=== PATIENT | male | born 1965 | race Two or more races ===

== ENCOUNTER 2023-01-31 11:41 | Outpatient (REF) | payer MEDICAID, SELFPAY ==
--- NOTE | ~2023-01-31 | XR_ITS ---
EXAMINATION: XR FOOT, RIGHT CLINICAL INFORMATION: Chronic heel pain right foot, bilateral lower back pain. Patient states foot surgery 30 years ago and has had pain ever since that COMPARISON: 08/19/2018 TECHNIQUE: AP, lateral, and oblique views of the right foot. FINDINGS: Redemonstration of 2 screws traversing the previously demonstrated old medial malleolus fracture. Small plantar and dorsal calcaneal spurs redemonstrated. Mild degenerative changes with hypertrophic change in the first metatarsophalangeal joint. XR/XR foot RT min 3V IMPRESSION: 1. Redemonstration of 2 screws traversing the previously demonstrated old medial malleolus fracture. 2. Small plantar and dorsal calcaneal spurs redemonstrated. 3. Mild degenerative changes in the first metatarsophalangeal joint. Recommend follow-up imaging in 10-14 days if fracture is suspected. Additional imaging with CT scan or MRI should be considered for better visualization as these modalities are much more sensitive for detection of fracture or other underlying pathology.
--- NOTE | ~2023-01-31 | XR_ITS ---
EXAMINATION: XR LUMBOSACRAL SPINE CLINICAL INFORMATION: 57-year-old with bilateral low back pain without sciatica. History of foot surgery with chronic right heel pain. COMPARISON: None available. TECHNIQUE: Three views of the lumbosacral spine. FINDINGS: The lumbosacral spine is anatomically aligned. No acute fractures are seen. Vertebral body heights are well maintained. There is multilevel paravertebral and anterior marginal spondylosis throughout the lumbar spine. Mild degrees of disc volume loss are suspected at L2-L3, L3-L4, L4-L5, and L5-S1. Posterior elements appear grossly intact, with mild degrees of facet arthropathy at L3-L4 and moderate degrees of facet arthropathy at L4-L5. The visualized SI joints and sacrum appear grossly intact within the limitations of the exam. Incidental note is made of anterior marginal spondylosis at T8-T9. XR/XR lumbar spine 2-3V IMPRESSION: 1. Multilevel lumbar spondylosis and mild disc volume loss at L2-L3 through L5-S1. 2. Facet arthropathy at L3-L4 and L4-L5.
[2023-01-31 13:51] LABS: Alanine Aminotransferase 26 U/L (0-40); Albumin Level 4.5 g/dL (3.5-5.0); Alkaline Phosphatase 71 U/L (39-117); Anion Gap 12 (12-20); Aspartate Amino Transferase 21 U/L (5-37); Bilirubin Direct 0.2 mg/dL (0.0-0.5); Bilirubin Total 0.8 mg/dL (0.0-1.0); Blood Urea Nitrogen 12 mg/dL (9-16); Calcium 9.5 mg/dL (8.4-10.2); Carbon Dioxide 28 mmol/L (22-29); Chloride 105 mmol/L (96-108); Cholesterol 227 mg/dL (<200); Estimated Glomerular Filt Rate > 60; Glucose Random 94 mg/dL (60-115); HDL Cholesterol 50 mg/dL (>40); LDL Cholesterol Calculated 154 mg/dL (<100); Potassium 3.8 mmol/L (3.3-5.1); Sodium 141 mmol/L (135-145); Total Protein 8.1 g/dL (6.5-8.0); Triglycerides 115 mg/dL (<150)
[2023-01-31 14:08] LABS: Free T4 (Free Thyroxine) 0.92 ng/dL (0.71-1.85); Thyroid Stimulating Hormone 0.59 uIU/mL (0.32-4.0); Vitamin D 25-OH Total 50.8 ng/mL (>30)
[2023-02-01 04:09] LABS: Syphilis Screen Nonreactive (Nonreactive)
[2023-02-01 04:33] LABS: HBS Num1 0.26 mIU/mL (0-7.99); HBsAGNum1 0.35 S/CO (0.00-0.99); HIV AB/AG Nonreactive (Nonreactive); HIV Num 1 0.06 S/CO (0.00-0.99); Hepatitis B Surface Antigen Negative (Negative); ~HepC Num1 0.08 S/CO (0.00-0.79); ~Hepatitis B Surface Antibody NONREACTIVE (Nonreactive); ~Hepatitis C Antibody Nonreactive (Nonreactive)
== END 2023-01-31 11:42 | disposition home or self-care (01) ==
LOC: HO.HHCL 11:41
PROVIDERS: Visit Provider Family Medicine
DX: I10 Essential (primary) hypertension (principal); R39.12 Poor urinary stream
CPT/HCPCS: 0353U; 72100; 73630; 80048; 80061; 80076; 82043; 82306; 82570; 83036; 84153; 84439; 84443; 85025; 86706; 86780; 86803; 87086; 87340; 87389

== ENCOUNTER 2023-02-11 14:48 | Emergency (ER) | payer MEDICAID, SELFPAY ==
[2023-02-11 14:59] VITALS: BP 170/84; PULSE 77; RESP 20; TEMP 36.6; O2SAT 100; BMI 36.9
--- NOTE | 2023-02-11 15:02 | ED_ITS ---
HPI - Dental/Oral General Chief complaint: Dental/Oral Stated complaint: Dental pain/Ear pain Time Seen by Provider: 02/11/23 15:02 Source: patient and family Mode of arrival: ambulatory Limitations: no limitations History of Present Illness HPI Narrative: Patient is a 57-year-old male presenting to the emergency department with several days of left upper jaw pain. States last night pain increased and he felt sweats/chills but did not check temperature. Reports pain is radiating to his left ear. Has an appointment with the dentist on 02/20. Denies any injury/trauma. MD Complaint: tooth pain Location: Tooth # (16) Teeth map: 2 1. gingival erythema, no fluctuance Onset (ago): day(s) Duration: worsening Severity: severe Severity scale (1-10): 8 Relieving factors: nothing Exacerbating factors: chewing Associated symptoms: fever (subjective) and ear pain Treatment prior to arrival: none Related Data Previous Rx's Medication Instructions Recorded amoxicillin 875 mg-potassium 1 tab PO Q12H dental infection #14 02/11/23 clavulanate 125 mg tablet tabs oxycodone 5 mg tablet 5 mg PO Q8H PRN pain #6 tabs 02/11/23 Allergies Allergy/AdvReac Type Severity Reaction Status Date / Time No Known Allergies Allergy Verified 02/11/23 14:58 [No Known Allergies*] Review of Systems 2 Review of Systems: As per HPI. Yes all other systems are reviewed and are negative Constitutional: Constitutional: Reports as per HPI [facility] Social History Social History (System 05/27/21 @ 12:37 by Carmela Barlow) Advance Directives: No Advance Directives Information Provided: No Physical Exam 2 Vital Signs: Vital Signs: Last Vital Signs Temp 97.8 F 02/11/23 14:59 Pulse 78 02/11/23 15:03 Resp 20 02/11/23 14:59 BP 147/88 H 02/11/23 15:03 Pulse Ox 100 02/11/23 14:59 O2 Del Method Room Air 02/11/23 14:59 BMI result Body Mass Index 36.9 Vital signs have been reviewed and appear to be correct. Blood pressure elevated initially, patient was speaking, repeat improved. Heart rate normal. Respiratory rate normal. Temperature normal. Oxygen saturation normal. Const: General: cooperative, healthy appearing and no acute distress O rientation/consciousness: oriented to person, oriented to place, oriented to time and patient oriented x3 Limitations: no limitations HEENT: Head: Yes normocephalic and Yes atraumatic Ears: external ears normal, TM's normal bilaterally, EAC's normal, mastoids normal and no periauricular adenopathy General nose exam: Normal external nose present F selena and sinus: Yes face symmetric Mouth: Normal oral and palatal mucosa present, lip normal, tongue normal, oropharynx normal, moist mucous membranes, no audible dysphonia, no drooling and no trismus Teeth and gingiva: dentition normal Teeth image: 1. gingival erythema, tenderness to palpation, no fluctuance Throat: Yes posterior oropharynx normal, Yes uvula midline and No uvular edema Eyes: Pupils: Equal, round and reactive pupils present Neck: Neck: Yes normal visual inspection, Yes no lymphadenopathy and Yes supple Resp: Effort & Inspection: normal respiratory effort and able to speak in complete sentences Auscultation: clear to auscultation bilaterally Cardio: Rate: regular rate Rhythm: regular rhythm Heart sounds: S1 normal heart sound present and S2 normal heart sound present Skin: General skin exam: elasticity normal and turgor normal Neuro: General: oriented to person, oriented to place, oriented to time, patient oriented x3, moves all extremities, no focal motor deficits and CN's II- XI intact bilaterally Cranial nerves: Yes Equal, round and reactive pupils present Cognition (Neuro): normal cognition Extrem: General: Yes full ROM, Yes no pedal edema and Yes no calf tenderness Psych: Mental Status: mental status grossly normal Affect: normal affect Thought process: Normal thought process present Medical Decision Making Medical Decision Making MDM Narrative: Patient is a 57-year-old male presenting to the emergency department with several days of left upper jaw pain radiating to left ear. On exam patient is awake, A+Ox3, VS WNL, afebrile, normal neurological exam without focal deficits, physical exam findings as above. Given reported symptoms and physical exam findings, initial differential includes dental pain, dental infection, dental abscess. Do not suspect Dino's angina. Will treat patient with course of Augmentin, oxycodone as needed for severe pain. Advised patient alternate Tylenol ibuprofen. Instructed patient follow-up with dentist on 02/20. Return precautions discussed. Patient verbalized understanding of and agreement with plan. Differential Diagnosis Differential Diagnoses: The differential diagnosis associated with the presentation includes As per MDM. External Record Review External record reviewed: Inpatient record, Office record and Outpatient record Prescription Management I considered prescription management with: Pain Medication and Antibiotic Discharge Plan Discharge Clinical Impression: Dental infection, Toothache Patient Disposition: Home, Self-Care Instructions: Toothache (ED) Additional Instructions: Hoy lo eval?an en el departamento de emergencias por dolor dental. Aldrich evaluaci?n muestra signos de infecci?n. Le est?n recetando antibi?ticos para tratar esta infecci?n; complete el tratamiento completo seg?n lo prescrito. Por favor acuda a aldrich everardo con aldrich dentista el 20/02. Regrese al departamento de emergencias si presenta un dolor que empeora, fiebre de 100.4 ?F o m?s, secreci?n amarilla espesa del ?vanessa, dificultad para tragar o respirar, o cualquier otro s?ntoma preocupante. Puede maria g 650 mg de Tylenol o 600 mg de ibuprofeno seg?n sea necesario para el dolor. Si es necesario, puedes alternar estos medicamentos cada 3 horas, por ejemplo al mediod?a maria g Tylenol, luego a las 15:00 horas. maria g ibuprofeno, luego a las 6:00 p.m. tome Tylenol, etc. Le recetan oxicodona para el dolor intenso. Prescriptions: New amoxicillin-pot clavulanate 875-125 mg tablet 1 tab PO Q12H Qty: 14 0RF oxycodone 5 mg tablet 5 mg PO Q8H PRN (Reason: pain) Qty: 6 0RF Rx Instructions: Partial Fill upon patient request. Interventions: ED Discharge Assessment Last Done: 02/11/23 15:20 Discharge Date/Time: 02/11/23 15:20 Print Language: [place]ian
[2023-02-11 15:03] VITALS: BP 147/88; PULSE 78
== END 2023-02-11 15:20 | disposition home or self-care (01) ==
PROVIDERS: Emergency Provider Emergency Medicine; PCP Family Medicine
DX: K04.7 Periapical abscess without sinus (principal); K08.89 Other specified disorders of teeth and supporting structures
CPT/HCPCS: 99282; 99283

== ENCOUNTER 2023-03-06 12:56 | Outpatient (REF) | payer MEDICAID, SELFPAY ==
[2023-03-06 16:16] LABS: C Reactive Protein 0.25 mg/dL (< or = 0.50)
[2023-03-06 16:38] LABS: Rheumatoid Factor < 13.0 IU/mL (<15.0)
[2023-03-06 16:50] LABS: Erythrocyte Sedimentation Rate 8 MM/HR (0-15)
[2023-03-08 02:13] LABS: Lyme Abs Screen <0.90 index
[2023-03-08 05:37] LABS: Rubella IgG Antibody <0.90 Index; Rubeola IgG (Measles) >300.00 AU/mL
[2023-03-12 12:57] LABS: Anti Nuclear Antibody Screen NEGATIVE (NEGATIVE)
== END 2023-03-06 12:57 | disposition home or self-care (01) ==
LOC: HO.HHCL 12:56
PROVIDERS: Visit Provider Family Medicine
DX: M79.641 Pain in right hand (principal); M79.642 Pain in left hand
CPT/HCPCS: 36415; 85652; 86038; 86140; 86431; 86617; 86618; 86735; 86762; 86765; 86787

== ENCOUNTER 2023-03-14 08:53 | Outpatient (REF) | payer MEDICAID, SELFPAY ==
--- NOTE | ~2023-03-14 | XR_ITS ---
EXAMINATION: XR BILATERAL HANDS CLINICAL INFORMATION: Bilateral hand pain. COMPARISON: None available. TECHNIQUE: 3 views of each hand. FINDINGS: LEFT HAND: Moderate degenerative changes in the first carpometacarpal joint with joint space narrowing and hypertrophic change. Thick linear radiodensities in the soft tissues overlying the distal aspect of the left radius of indeterminate etiology, possibly related to foreign body or external process. Curvilinear radiodensity overlying the soft tissues at the level of the left third middle phalanx, possibly related to foreign body or external to the patient. RIGHT HAND: Moderate degenerative changes in the first carpometacarpal joint with joint space narrowing and hypertrophic change. Alignment preserved. No displaced fracture. XR/XR hand RT min 3V IMPRESSION: 1. Moderate degenerative changes in the bilateral first carpometacarpal joints. 2. Curvilinear radiodensity overlying the soft tissues left third middle phalanx, possibly related to foreign body or external to the patient. 3.Thick linear radiodensities in the soft tissues overlying the distal aspect of the left radius of indeterminate etiology, possibly related to foreign body or external process. 4. No displaced fracture. Recommend follow up imaging in 10-14 days if fracture is suspected. Correlation with clinical exam recommended to determine further management.
--- NOTE | ~2023-03-14 | XR_ITS ---
EXAMINATION: XR BILATERAL HANDS CLINICAL INFORMATION: Bilateral hand pain. COMPARISON: None available. TECHNIQUE: 3 views of each hand. FINDINGS: LEFT HAND: Moderate degenerative changes in the first carpometacarpal joint with joint space narrowing and hypertrophic change. Thick linear radiodensities in the soft tissues overlying the distal aspect of the left radius of indeterminate etiology, possibly related to foreign body or external process. Curvilinear radiodensity overlying the soft tissues at the level of the left third middle phalanx, possibly related to foreign body or external to the patient. RIGHT HAND: Moderate degenerative changes in the first carpometacarpal joint with joint space narrowing and hypertrophic change. Alignment preserved. No displaced fracture. XR/XR hand LT min 3V IMPRESSION: 1. Moderate degenerative changes in the bilateral first carpometacarpal joints. 2. Curvilinear radiodensity overlying the soft tissues left third middle phalanx, possibly related to foreign body or external to the patient. 3.Thick linear radiodensities in the soft tissues overlying the distal aspect of the left radius of indeterminate etiology, possibly related to foreign body or external process. 4. No displaced fracture. Recommend follow up imaging in 10-14 days if fracture is suspected. Correlation with clinical exam recommended to determine further management.
== END 2023-03-14 08:54 | disposition home or self-care (01) ==
LOC: HO.HHCX 08:53
PROVIDERS: Visit Provider Family Medicine
DX: M79.641 Pain in right hand (principal); M79.642 Pain in left hand
CPT/HCPCS: 73130

== ENCOUNTER 2023-04-04 09:37 | Outpatient (REF) | payer MEDICAID, SELFPAY ==
--- NOTE | 2023-04-04 | EMG_ITS ---
Please see scanned EMG / Nerve Conduction Report. MTDD
== END 2023-04-04 09:38 | disposition home or self-care (01) ==
LOC: HO.NEURO 09:37
PROVIDERS: PCP Family Medicine; Visit Provider Family Medicine
DX: M79.641 Pain in right hand (principal); M79.642 Pain in left hand
CPT/HCPCS: 95885; 95913

== ENCOUNTER 2023-04-27 11:42 | Outpatient (REF) | payer MEDICAID, SELFPAY ==
--- NOTE | ~2023-04-27 | XR_ITS ---
EXAMINATION: XR KNEE, LEFT CLINICAL INFORMATION: Knee pain COMPARISON: None available. TECHNIQUE: Three views of the left knee. FINDINGS: No fracture or joint effusion. Alignment is anatomic. Joint spaces are maintained. No abnormal soft tissue calcification. XR/XR knee LT 3V IMPRESSION: Normal left knee.
--- NOTE | ~2023-04-27 | XR_ITS ---
EXAMINATION: XR HAND, LEFT CLINICAL INFORMATION: Chronic pain COMPARISON: 03/14/2023 TECHNIQUE: PA, lateral, and oblique views of the left hand. FINDINGS: There is no interval change in appearance of mild changes of osteoarthritis of the first carpometacarpal joint with joint space narrowing and marginal spurring. The rest of joint spaces are preserved bones are well-mineralized and soft tissues are normal. XR/XR hand LT min 3V IMPRESSION: No interval change
--- NOTE | ~2023-04-27 | XR_ITS ---
EXAMINATION: XR KNEE, RIGHT CLINICAL INFORMATION: Chronic knee pain COMPARISON: None available. TECHNIQUE: Four views of the right knee. FINDINGS: No fracture or joint effusion. Alignment is anatomic. Joint spaces are maintained. No abnormal soft tissue calcification. XR/XR knee RT 3V IMPRESSION: Normal right knee.
--- NOTE | ~2023-04-27 | XR_ITS ---
EXAMINATION: XR HAND, RIGHT CLINICAL INFORMATION: Osteoarthritis COMPARISON: 03/14/2023 TECHNIQUE: PA, lateral, and oblique views of the right hand. FINDINGS: There is no interval change in appearance of mild changes of osteoarthritis at the first carpometacarpal joint. There are no fractures or dislocations seen. Bones are well-mineralized and soft tissues are normal. XR/XR hand RT min 3V IMPRESSION: No interval change
== END 2023-04-27 11:43 | disposition home or self-care (01) ==
LOC: HO.HHCX 11:42
PROVIDERS: Visit Provider Family Medicine
DX: M79.641 Pain in right hand (principal); M79.642 Pain in left hand; M25.561 Pain in right knee; M25.562 Pain in left knee; G89.29 Other chronic pain
CPT/HCPCS: 73130; 73562

== ENCOUNTER 2023-06-21 11:00 | Outpatient (RCR) | payer MEDICAID, SELFPAY ==
[2023-06-06 10:06] VITALS: BP 186/96; PULSE 86
== END 2023-06-27 10:34 | disposition home or self-care (01) ==
LOC: HO.PT 11:00
PROVIDERS: PCP Family Medicine; Visit Provider Family Medicine
DX: M25.561 Pain in right knee (principal); M25.562 Pain in left knee; G89.29 Other chronic pain
CPT/HCPCS: 97110; 97161

== ENCOUNTER 2023-06-25 09:51 | Outpatient (AMB) | payer MEDICAID, SELFPAY ==
--- NOTE | 2023-06-25 10:00 | A.OFFVIS_ITS ---
Intake Vital Signs 06/25/23 10:10 Height 5 ft 5 in Weight 230 lb BMI 38.3 BP 121/77 Blood Pressure Location Lt brachial Position Sitting Pulse 83 Intake Visit Reasons: Colonoscopy Screening Intake Note: Patient first pre colonoscopy screening. Patient denies any GI issues. Water Control Supervisor Required: Yes Water Control Supervisor Name: Diony [id number] Accompanied by: Spouse Allergies No Known Allergies [No Known Allergies*] Allergy (Verified 06/25/23 09:56) Medication List - Last Reconciled 06/25/23 by Heather Mcneal PA-C lisinopril 40 mg PO DAILY oxycodone 5 mg PO Q8H PRN HPI HPI Comments History of Present Illness Details 57-year-old male family history colon ca ncer referred for index screening colonoscopy-his accompanies him His mother in her 60s diagnosed with colon cancer-details limited Water Control Supervisor device use Normal bowels Good appetite No cardiac or respiratory issues He has chronic pain takes oxycodone No nausea, vomiting, hematemesis, hematochezia fever chills PFSH Surgical History (Updated 06/25/23 @ 10:11 by Nicki Benjamin) History of surgery on lower extremity Family History (Updated 06/25/23 @ 10:15 by Heather Mcneal PA-C) Mother Bone cancer Colon cancer Father Heart disease Social History (Updated 06/25/23 @ 10:18 by Heather Mcneal PA-C) Household Members: Spouse Alcohol intake: never Patient Tobacco Use Status: Never used Tobacco Current occupational status: disabled Review of Systems Const All systems reviewed & are unremarkable except as noted in HPI and below Card Denies chest pain and Denies dyspnea Resp Denies dyspnea GI Reports no additional complaints Physical Exam Vital Signs: Last Vital Signs Pulse 83 06/25/23 10:10 BP 121/77 06/25/23 10:10 BMI result Body Mass Index 38.3 Const General: cooperative, healthy appearing, comfortable and no acute distress Orientation/consciousness: patient oriented x3 Limitations: language barrier Eyes Sclerae: sclerae normal Resp Effort & Inspection: normal respiratory effort and able to speak in complete sentences Auscultation: clear to auscultation bilaterally, no rales, no rhonchi and no wheezes Cardio Rate: regular rate Rhythm: regular rhythm Heart sounds: S1 normal heart sound present and S2 normal heart sound present Skin General skin exam: no rashes or lesions noted and scars (nose) Neuro General: patient oriented x3 Extrem General: Yes full ROM Psych Appearance: grossly normal and well kempt Mental Status: mental status grossly normal Speech and movement: Normal speech and movement present Affect: normal affect Attitude: cooperative Thought process: Normal thought process present Insight: Good insight present (Psych) Judgement: Good judgement present (Psych) Assessment & Plan Assessment & Plan (1) Encounter for screening colonoscopy: Comment: [facility] discusses/ proc/rare risks/ prep/ need for escort- anesthesia Code(s): Z12.11 - Encounter for screening for malignant neoplasm of colon Plan: index colon (2) Family history of colon cancer: Comment: mother-68 Code(s): Z80.0 - Family history of malignant neoplasm of digestive organs Plan Index screening colonoscopy MG prtep need interp Orders: Orders Colonoscopy - GI Use Only Today Z12.11 - Encounter for screening for malignant neoplasm of colon Medications: New bisacodyl (Dulcolax (bisacodyl)) Day before procedure @ 12 noon Take 4 tablets by mouth followed by large glass of water 20 mg (4 x 5 mg) PO ONCE PRN 4 tabs 0RF colonoscopy prep 1 day Z12.11 - Encounter for screening for malignant neoplasm of colon polyethylene glycol 3350 (Miralax) Take as directed by mouth the day before your procedure. 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
[2023-06-25 10:10] VITALS: BP 121/77; PULSE 83; BMI 38.3
== END 2023-06-25 12:18 | disposition home or self-care (01) ==
PROVIDERS: PCP Family Medicine; Visit Provider Physician Assistant
DX: Z12.11 Encounter for screening for malignant neoplasm of colon (principal); Z80.0 Family history of malignant neoplasm of digestive organs; Z01.818 Encounter for other preprocedural examination
CPT/HCPCS: 99203

== ENCOUNTER → 2023-06-25 09:51 | Outpatient (BNVA) | payer MEDICAID, SELFPAY | PROVIDERS: PCP Family Medicine; Visit Provider Physician Assistant | DX: Z12.11 Encounter for screening for malignant neoplasm of colon (principal); Z80.0 Family history of malignant neoplasm of digestive organs | CPT/HCPCS: 99212 ==

== ENCOUNTER 2024-01-09 09:01 | Day surgery (SDC) | payer MEDICAID, SELFPAY ==
--- NOTE | 2024-01-08 10:22 | HO.ANESPROP2 ---
Documented by User: Stephanie Florence NP 01/08/24 10:23 HPI - Anesthesia Eval Consult details Narrative: 58yo M for Colonoscopy [facility] Active Problems Active Problems: All Active Problems Family history of colon cancer (Acute) Encounter for screening colonoscopy (Acute) Family History Family History (Updated 06/25/23 @ 10:15 by Heather Mcneal PA-C) Mother Bone cancer Colon cancer Father Heart disease Surgical History Surgical History (Updated 06/25/23 @ 10:11 by Nicki Benjamin) History of surgery on lower extremity Social History Social History (Updated 06/25/23 @ 10:18 by Heather Mcneal PA-C) Household Members: Spouse Are you a primary health care social worker to a significant other at home: No Do you presently have visiting nurse or other home services: No Alcohol intake: never Patient Tobacco Use Status: Never used Tobacco Use of substances other than those prescribed or required for medical reasons: No Have you been hit, kicked, punched, or otherwise hurt by someone within the past year? If so, by whom?: No Are you DNR?: No Advance Directives: No Advance Directives Information Provided: Yes Recently lost weight without trying: No Current occupational status: disabled Meds Allergies Allergy/AdvReac Type Severity Reaction Status Date / Time No Known Allergies Allergy Verified 06/25/23 09:56 [No Known Allergies*] Home Medications ?Medication ?Instructions ?Recorded ?Confirmed ?Last Taken ?Type lisinopril 40 mg tablet 40 mg PO DAILY 06/25/23 06/25/23 Unknown History Assessment and Plan Assessment Anesthesia Assessment: Chart Reviewed Documented by User: Tom Mccarty MD 01/09/24 10:08 [facility] Past Medical History Narrative: Has HTN, chronic pain. Family History Family History (Updated 06/25/23 @ 10:15 by Heather Mcneal PA-C) Mother Bone cancer Colon cancer Father Heart disease Family history of problems with anesthesia: No Surgical History Surgical History (Updated 06/25/23 @ 10:11 by Nicki Benjamin) History of surgery on lower extremity History of Problems with Anesthesia: No Social History Social History (Updated 06/25/23 @ 10:18 by Heather Mcneal PA-C) Household Members: Spouse Are you a primary health care social worker to a significant other at home: No Do you presently have visiting nurse or other home services: No Alcohol intake: never Patient Tobacco Use Status: Never used Tobacco Use of substances other than those prescribed or required for medical reasons: No Have you been hit, kicked, punched, or otherwise hurt by someone within the past year? If so, by whom?: No Are you DNR?: No Advance Directives: No Advance Directives Information Provided: Yes Recently lost weight without trying: No Current occupational status: disabled Meds Allergies Allergy/AdvReac Type Severity Reaction Status Date / Time No Known Allergies Allergy Verified 06/25/23 09:56 [No Known Allergies*] Home Medications ?Medication ?Instructions ?Recorded ?Confirmed ?Last Taken ?Type lisinopril 40 mg tablet 40 mg PO DAILY 06/25/23 06/25/23 Unknown History Exam Airway Mallampati Class: II TM Dist: <=3cm Neck ROM: Full Loose/Missing/Broken Teeth: No Heart: ok Lungs: ok Assessment and Plan Assessment Anesthesia Assessment: Anesthesia Plan Discussed Final Anesthetic Review Family History of Problems with Anesthesia: No History of Problems with Anesthesia: No NPO: Yes ASA Class: II Final Preanesthetic Review: No Changes in Pt Med Stat, Meds/Allgs Chart Reviewed, Consent Obtained/Reviewed and Anes Risks/Benef Reviewed Patient Risk: Intermediate Procedure Risk: Low Anesthetic Plan Anesthetic Plan: MAC: and Agree w/ Assess. and Plan Disposition: Standard PACU
[2024-01-09 09:47] VITALS: BP 153/80; PULSE 63; RESP 16; TEMP 36.7; O2SAT 99; BMI 35.9
--- NOTE | 2024-01-09 09:54 | MHC.SHP ---
Pre-Procedural Eval Section A - 24 Hr Update-Section A only Date of Service: 01/09/24 Section B - Complete if H&P > 30 days Chief Complaint: Encounter for screening for malignant neoplasm of Relevant Family History (Specify if Yes): No Relevant Social History: None Present Medications: see Short Stay Collaborative assessment Medical History: Significant History (htn) History of Previous Operations: Relevant previous surgery/procedure and date(s) ( History of surgery on lower extremity) Allergies: Allergies Allergy/AdvReac Type Severity Reaction Status Date / Time No Known Allergies Allergy Verified 06/25/23 09:56 [No Known Allergies*] Review of Systems Sugical H&P ROS: Negative: Constitution, Cardiovascular, Respiratory, Neurological, Psychiatric, Hem-Onc, Allergic/Immunologic, Gastrointestinal, Genitourinary, Musculoskeletal, Integumentary, Endocrine and Eyes/Ears/Nose/Throat Exam Surgical H&P Exam: Normal: HEENT, Normal: Heart, Normal: Lungs, Normal: Extremities, Normal: Abdomen, Normal: Skin and Normal: Neurological Plan Diagnosis/Plan: Unchanged I have reviewed the history and physical and performed a pertinent physical examination on my patient. No changes have occurred unless specified. Time Spent With Patient Time: Total time managing care of this patient today ____ minutes.
--- NOTE | 2024-01-09 10:41 | HO.OPN-COLON ---
Colonoscopy Operative Note Operative Note Date of Service: 01/09/24 Narrative: Operative Information Procedure Description: Colonoscopy Indication: screening Anesthesia: MAC COLONOSCOPY Instrument: Olympus variable stiffness ADULT scope 190L Colonoscopy Monitoring: Vital signs and clinical assessment, continuous EKG monitoring, Pulse oximetry, Carbon Dioxide monitoring and blood pressure monitoring were done throughout the procedure. Colon withdrawal time was 9 minutes. Procedure: The patient was placed in the left lateral decubitis position and pre-procedure medications were administered. After a digital rectal examination of the ano-rectum, the video colonoscope was inserted into the rectum and advanced through the colon to the cecum/TI. The colonoscope was slowly withdrawn in a retrograde panoramic fashion and the colon mucosa was carefully examined including a retroflexed view of the rectum. Findings and interventions are described below. Procedure Difficulty: easy Findings: Terminal Ileum-normal Cecum:normal Ascending Colon: normal Transverse Colon - 4-5 mm sessile polyp removed with cold forceps Descending Colon:normal Sigmoid Colon: mild diverticulosis Rectum: Retroflexion with small internal hemorrhoids seen, grade I Anorectum - normal Intervention: cold forceps Colon preparation: [place] Bowel Preparation Scale Right colon; 2 Transverse colon: 2 Left colon; 2 (0 = Unprepared colon segment with mucosa not seen due to solid stool that cannot be cleared. 1 = Portion of mucosa of the colon segment seen, but other areas of the colon segment not well seen due to staining, residual stool and/or opaque liquid. 2 = Minor amount of residual staining, small fragments of stool and/or opaque liquid, but mucosa of colon segment seen well. 3 = Entire mucosa of colon segment seen well with no residual staining, small fragments of stool or opaque liquid) Impression and Post Procedure Diagnosis: diverticulosis colon polyps internal hemorrhoids Plan: High fiber diet leaflet Avoid straining at stool, epsom salts and sitz bath, anusol supps or cream Repeat Colonoscopy in 5 years if adenomatous polyp, 10 yrs if hyperplastic or earlier if clinically indicated (patient denies FH of CRC) Above findings were reviewed with the patient and relevant handouts were provided if indicated.
[2024-01-09 11:11] VITALS: BP 111/72; PULSE 70; RESP 16; TEMP 36.2; O2SAT 96
[2024-01-09 11:30] VITALS: BP 126/74; PULSE 66; RESP 16; O2SAT 97
[2024-01-09 11:40] VITALS: PULSE 62; RESP 16; TEMP 36.2; O2SAT 98
== END 2024-01-09 11:59 | disposition home or self-care (01) ==
PROVIDERS: PCP Family Medicine; Visit Provider Internal Medicine Gastroenterology
PROC: 0DJD8ZZ Inspection of Lower Intestinal Tract, Via Natural or Artificial Opening Endoscopic (ICD-10-PCS; CPT 45378; principal; 2024-01-09 10:40)
DX: Z12.11 Encounter for screening for malignant neoplasm of colon (principal); D12.3 Benign neoplasm of transverse colon; K57.30 Diverticulosis of large intestine without perforation or abscess without bleeding; K64.0 First degree hemorrhoids; Z80.0 Family history of malignant neoplasm of digestive organs
CPT/HCPCS: 45380; 88305; J2704

== ENCOUNTER → 2024-01-09 09:01 | Outpatient (BNV) | payer MEDICAID, SELFPAY | PROVIDERS: PCP Family Medicine; Visit Provider Internal Medicine Gastroenterology | DX: Z12.11 Encounter for screening for malignant neoplasm of colon (principal); D12.3 Benign neoplasm of transverse colon; K57.30 Diverticulosis of large intestine without perforation or abscess without bleeding; K64.0 First degree hemorrhoids | CPT/HCPCS: 45380 ==

== ENCOUNTER 2024-01-28 15:05 | Outpatient (AMB) | payer MEDICAID, SELFPAY ==
--- NOTE | 2024-01-28 15:06 | MHC.OFFVIS ---
Vital Signs 01/28/24 15:09 Height 5 ft 5 in Weight 225 lb BMI 37.4 Handedness Right Intake Visit Reasons: [employer]- B/L hand pain B/L CTS Intake Note: Chuck is a 58 year old right hand dominant male who presents today as a new patient with complaints of bilateral hand numbness and tingling. Patient has hx of EMG done on 04/04/2023. Right worse than left. Patient reports all his digits of his B/L hands cramp up and he waits for it to relieve on its own and go back to normal. He expresses sometimes he drops objects that he is holding but does not express difficulty with gripping or grasping. Tylenol and ibuprofen give little relief. Patient is willing to discuss surgical treatment if necessary. Validation Manager Required: Yes Validation Manager Language: Assistant Store Director Name: [id number] Allergies No Known Allergies [No Known Allergies*] Allergy (Verified 01/28/24 15:10) HPI HPI [employer]- B/L hand pain B/L CTS: Details: Patient is a 58-year-old male who presents for bilateral hand pain, numbness, tingling, ongoing for approximately 1-2 years. Patient reports that his symptoms are intermittent, but daily, and worse at night. Patient did have EMG and nerve conduction study performed last year, and views revealed moderate carpal tunnel syndrome bilaterally. Patient reports that symptoms are more bothersome on the right. No other acute complaints or concerns at this time. COUNT INCLUDES THE [facility] Surgical History History of surgery on lower extremity Family History Mother Bone cancer Colon cancer Father Heart disease Social History Household Members: Spouse Are you a primary child care leader to a significant other at home: No Do you presently have visiting nurse or other home services: No Alcohol intake: never Patient Tobacco Use Status: Never used Tobacco Current occupational status: disabled Review of Systems Const All systems reviewed & are unremarkable except as noted in HPI and below Physical Exam Vital Signs: BMI result Body Mass Index 37.4 Extrem Other: Neuro: Normal sensation of the tips of all digits of bilateral hands at this time No thenar or intrinsic wasting. Good APB muscle firing and good finger cross. Vascular: Capillary refill brisk. ROM: Patient can make a fist and extend all their digits. Skin: No lacerations or abrasions noted. General: No ecchymosis. No erythema or evidence of infection. Results Reviewed Results Reviewed: EMG and nerve conduction study performed by Dr. Chicas on 04/04/2023 revealed moderate carpal tunnel syndrome bilaterally Assessment & Plan Assessment & Plan (1) Bilateral carpal tunnel syndrome: Code(s): G56.03 - Carpal tunnel syndrome, bilateral upper limbs Category: Medical Plan 1. Carpal tunnel syndrome, right Symptoms intermittent, daily, worse at night I educated the patient about the condition. I discussed both operative and nonoperative treatment options. The patient would like to proceed with surgery. The risks and benefits of operative treatment were discussed with the patient and the patient wishes to proceed with surgery. These risks include, but are not limited to, risk of damage to blood vessels, nerves, tendons, infection, recurrence, incomplete relief of preoperative symptoms, persistent pain, possible need for further surgery, and the risks associated with regional blocks and/or anesthesia. Plan is to take the patient to the operating room at some point in the next few weeks for the following procedures: 1. Right carpal tunnel release under local anesthesia All of the preoperative paperwork including the consent was discussed today. All of the patient's questions were answered in the clinic today. The patient understands that they will be in contact with our surgical dressing maker to discuss scheduling their procedure. Patient denies diabetes, blood thinners, asthma, heart issues, lung issues, kidney issues, or current smoking. 2. Carpal tunnel syndrome, left Symptoms intermittent, but daily, worse at night At this time, patient would like to pursue operative treatment on the right side prior to any surgical intervention on the left Patient was informed that we can get the left side signed up for surgery if he is recovering well on the right side at his postoperative visit Patient was amenable to this plan Patient will follow-up as needed with any acute concerns Coding Level of Care Code New Pt Level 4 (62788) Diagnoses Bilateral carpal tunnel syndrome G56.03
[2024-01-28 15:09] VITALS: BMI 37.4
== END 2024-01-28 15:37 | disposition home or self-care (01) ==
PROVIDERS: PCP Family Medicine
DX: G56.03 Carpal tunnel syndrome, bilateral upper limbs (principal)
CPT/HCPCS: 99204

== ENCOUNTER → 2024-01-28 15:05 | Outpatient (BNVA) | payer MEDICAID, SELFPAY | PROVIDERS: PCP Family Medicine | DX: G56.03 Carpal tunnel syndrome, bilateral upper limbs (principal) | CPT/HCPCS: 99212 ==

== ENCOUNTER 2024-02-15 11:33 | Outpatient (REF) | payer MEDICAID, SELFPAY ==
--- NOTE | ~2024-02-15 | XR_ITS ---
EXAMINATION: XR FOOT, RIGHT XR FOOT, LEFT CLINICAL INFORMATION: Bilateral heel pain. COMPARISON: Most recent right foot radiographs dated 01/31/2023. TECHNIQUE: AP, oblique, and lateral views of the right and left foot. FINDINGS: Right foot: No acute fracture or dislocation. Mild joint space with small marginal osteophytes at the first metatarsophalangeal joint, slightly progressed. No concerning lytic or blastic osseous lesion. Plantar and dorsal calcaneal spurs. Medial malleolar orthopedic screws without evidence of hardware complication. Left foot: No acute fracture or dislocation. No joint space narrowing or marginal osteophytes. No osseous erosion. Plantar and dorsal calcaneal spurs. XR/XR foot RT min 3V IMPRESSION: RIGHT FOOT: Mild first metatarsophalangeal osteoarthritis, slightly progressed. Plantar and dorsal calcaneal spurs. LEFT FOOT: Plantar and dorsal calcaneal spurs. No acute osseous abnormality. No osseous erosion. Electronically signed by: Vazquez Clements MD 02/15/2024 03:00 PM EDT
--- NOTE | ~2024-02-15 | XR_ITS ---
EXAMINATION: XR FOOT, RIGHT XR FOOT, LEFT CLINICAL INFORMATION: Bilateral heel pain. COMPARISON: Most recent right foot radiographs dated 01/31/2023. TECHNIQUE: AP, oblique, and lateral views of the right and left foot. FINDINGS: Right foot: No acute fracture or dislocation. Mild joint space with small marginal osteophytes at the first metatarsophalangeal joint, slightly progressed. No concerning lytic or blastic osseous lesion. Plantar and dorsal calcaneal spurs. Medial malleolar orthopedic screws without evidence of hardware complication. Left foot: No acute fracture or dislocation. No joint space narrowing or marginal osteophytes. No osseous erosion. Plantar and dorsal calcaneal spurs. XR/XR foot LT min 3V IMPRESSION: RIGHT FOOT: Mild first metatarsophalangeal osteoarthritis, slightly progressed. Plantar and dorsal calcaneal spurs. LEFT FOOT: Plantar and dorsal calcaneal spurs. No acute osseous abnormality. No osseous erosion. Electronically signed by: Vazquez Clements MD 02/15/2024 03:00 PM EDT
== END 2024-02-15 11:34 | disposition home or self-care (01) ==
LOC: HO.HHCX 11:33
PROVIDERS: Visit Provider Family Medicine
DX: M79.671 Pain in right foot (principal); M79.672 Pain in left foot
CPT/HCPCS: 73630

== ENCOUNTER 2024-03-12 08:20 | Outpatient (REF) | payer MEDICAID, SELFPAY ==
[2024-03-12 11:47] LABS: Hematocrit 46.6 % (42.0-52.0); Hemoglobin 15.5 g/dl (14.0-18.0); Mean Corpuscular HGB Conc 33.3 g/dl (31.0-36.0); Mean Corpuscular Hemoglobin 30.5 pg (27.0-33.0); Mean Corpuscular Volume 91.6 fL (80.0-98.0); Mean Platelet Volume 11.6 fL (9.4-12.4); Platelet Count 217 X10*3/uL (160-400); Red Blood Count 5.09 X10*6/uL (4.60-5.80); Red Cell Distribution Width 12.6 % (11.0-16.0)
[2024-03-12 11:49] LABS: Estimated Average Glucose 108 mg/dL; Hemoglobin A1C 148.8055 umol/L; Hemoglobin A1c % 5.4 % (<6.0); Total Hemoglobin (HGBA1C) 4138.7497 umol/L
[2024-03-12 12:15] LABS: HBS Num1 0.95 mIU/mL (0-7.99); HBsAGNum1 0.38 S/CO (0.00-0.99); HIV AB/AG Nonreactive (Nonreactive); HIV Num 1 0.05 S/CO (0.00-0.99); Hepatitis B Surface Antigen Negative (Negative); ~HepC Num1 0.09 S/CO (0.00-0.79); ~Hepatitis B Surface Antibody NONREACTIVE (Nonreactive); ~Hepatitis C Antibody Nonreactive (Nonreactive)
[2024-03-12 12:18] LABS: Alanine Aminotransferase 33 U/L (0-40); Albumin Level 4.4 g/dL (3.5-5.0); Alkaline Phosphatase 77 U/L (39-117); Anion Gap 11 (12-20); Aspartate Amino Transferase 25 U/L (5-37); Bilirubin Direct 0.1 mg/dL (0.0-0.5); Bilirubin Total 0.5 mg/dL (0.0-1.0); Blood Urea Nitrogen 19 mg/dL (9-16); Calcium 9.5 mg/dL (8.4-10.2); Carbon Dioxide 32 mmol/L (22-29); Chloride 102 mmol/L (96-108); Cholesterol 228 mg/dL (<200); Estimated Glomerular Filt Rate > 60; Free T4 (Free Thyroxine) 0.88 ng/dL (0.71-1.85); Glucose Random 109 mg/dL (60-115); HDL Cholesterol 53 mg/dL (>40); LDL Cholesterol Calculated 138 mg/dL (<100); Potassium 3.6 mmol/L (3.3-5.1); Sodium 141 mmol/L (135-145); Thyroid Stimulating Hormone 0.85 uIU/mL (0.32-4.0); Total Protein 7.8 g/dL (6.5-8.0); Triglycerides 187 mg/dL (<150); Vitamin D 25-OH Total 37.8 ng/mL (>30)
[2024-03-12 12:29] LABS: Creatinine Urine 118.02 mg/dL; Microalbumin Urine < 5.0 mg/L
[2024-03-12 14:53] LABS: CT PCR NOT DETECTED (Not Detect.); NG PCR NOT DETECTED (Not Detect.)
[2024-03-14 01:33] LABS: Rubeola IgG (Measles) >300.00 AU/mL
[2024-03-14 08:34] LABS: RPR Rapid Plasma Reagin NON-REACTIVE (NON-REACTIVE)
== END 2024-03-12 08:21 | disposition home or self-care (01) ==
LOC: HO.HHCL 08:20
PROVIDERS: Visit Provider Family Medicine
DX: Z00.00 Encounter for general adult medical examination without abnormal findings (principal); I10 Essential (primary) hypertension; E78.49 Other hyperlipidemia; G56.03 Carpal tunnel syndrome, bilateral upper limbs; M25.561 Pain in right knee; M25.562 Pain in left knee; G89.29 Other chronic pain; G47.33 Obstructive sleep apnea (adult) (pediatric); M79.671 Pain in right foot; M79.672 Pain in left foot; Z01.84 Encounter for antibody response examination
CPT/HCPCS: 80048; 80061; 80076; 82043; 82306; 82570; 83036; 84439; 84443; 85027; 86592; 86706; 86735; 86762; 86765; 86803; 87340; 87389; 87491; 87591

== ENCOUNTER 2025-03-06 09:57 | Outpatient (REF) | payer MEDICAID, SELFPAY ==
--- OUTSIDE RECORDS SUMMARY | 2025-03-06 11:38 | XMS_ITS | Clinical Summary ---
Author Organization [address] [facility] Address [address] [place] [address] Phone Care Team Providers Care Segment Producer Name Role Phone Berenice Bhatia DO Primary Care Provider [phone] Social History Tobacco Use Types Packs/Day Years Used Date Smoking Tobacco: Never Assessed Sex and Gender Information Value Date Recorded Sex Assigned at Not on file Legal Sex Male 11:38 PM EST Gender Identity Not on file Sexual Orientation Not on file Last Filed Vital Signs Vital Sign Reading Time Taken Comments Blood Pressure 135/85 01/23/2023 9:54 AM EDT Pulse 78 01/23/2023 9:54 AM EDT Temperature - - Respiratory Rate - - Oxygen Saturation - - Inhaled Oxygen Concentration - - Weight 104 kg (228 lb 12.8 oz) 01/23/2023 9:54 A M EDT Height 168.9 cm (5' 6.5 ) 01/23/2023 9:54 AM EDT Body Mass Index 36.38 01/23/2023 9:54 AM EDT Plan of Treatment Health Maintenance Due Date Last Done Comments Colorectal Cancer Screening: Colonoscopy 1966 DTaP,Tdap,and Td Vaccines (1 - Tdap) 1985 Hepatitis B Vaccines (1 of 3 - 19+ 3-dose series) 1985 Pneumococcal Vaccine: 50+ Ye ars (1 of 1 - PCV) 2016 Zoster Vaccines (1 of 2) 2016 Cholesterol Screening (Lipid Panel) 03/26/2024 HIV Screening 03/26/2024 Hepatitis C Screening 03/26/2024 Social Influencers of Health Screening 03/26/2024 Depression Screening 04/23/2024 COVID-19 Vaccine ( - 2024-2 6 season) 2024 Influenza Vaccine (#1) 2024 RSV Immunization Adult Patie nts (1 - 1-dose 75+ series) 2041 HIB Vaccines Aged Out No longer eligi ble based on patient's age to complete this topic HPV Vaccines Aged Out No longer eligi ble based on patient's age to complete this topic Hepatitis A Vaccines Aged Out No long er eligible based on patient's age to complete this topic IPV Vaccines Aged Out No longer eligi ble based on patient's age to complete this topic MMR Vaccines Aged Out No longer eligi ble based on patient's age to complete this topic Meningococcal ACWY Vaccine Aged Out N o longer eligible based on patient's age to complete this topic Meningococcal B Vaccine Aged Out No l onger eligible based on patient's age to complete this topic RSV Immunization Patients Un valentino 20 months Aged Out No longer eligible b ased on patient's age to complete this topic Varicella Vaccines Aged Out No longer eligible based on patient's age to complete this topic Insurance MEDICAID - [place] Care Teams Segment Producer Relationship Specialty Start Date End Date Berenice Bhatia DO [address] [place] [address] PCP - General Family Medicine 03/26/24
--- OUTSIDE RECORDS SUMMARY | 2025-03-06 11:38 | XMS_ITS | Encounter Summary ---
Author Organization [employer] Address [address] [facility] [address] [place] [address] Care Team Providers Care Busboy Name Role Phone Nimco Cervantes [facility] Primary Care Provider [phone] Berenice Bhatia DO Primary Care Provider [phone] Encounter Details Date Type Department Care Team (Late st Contact Info) Description 05/19/2022 Orders Only [facility] [address] [place] [address] Louann Doty RN Social History Tobacco Use Types Packs/Day Years Used Date Smoking Tobacco: Never Assessed Sex and Gender Information Value Date Recorded Sex Assigned at Male 02/20/2022 10:37 AM EDT Legal Sex Male 2:47 PM EST Gender Identity Male 02/20/2022 10:37 AM EDT Sexual Orientation Choose not to disclose 2021 10:37 AM EDT documented as of this encounter Plan of Treatment Not on file documented as of this encounter Visit Diagnoses Not on filedocumented in this encounter Care Teams Busboy Relationship Specialty Start Date End Date Nimco Cervantes [facility] [address] [place] [id number] PCP - General Family Medicine 12/20/21 01/30/23 Berenice Bhatia DO [address] [place] [id number] PCP - General Family Medicine 01/31/23 documented as of this encounter
--- OUTSIDE RECORDS SUMMARY | 2025-03-06 11:38 | XMS_ITS | Encounter Summary ---
Author Organization [employer] Address [address] [facility] [address] [place] [address] Care Team Providers Care Technical Program Manager Name Role Phone [facility] Primary Care Provider [phone] Berenice Bhatia DO Primary Care Provider [phone] Reason for Visit * Reason Onset Date Comments Referral 05/19/2022 Encounter Details Date Type Department Care Team ([facility] st Contact Info) Description 05/19/2022 Telephone [facility] [address] [place], [place] [phone] [facility] [address], [place] [phone] Referral Social History Tobacco Use Types Packs/Day Years Used Date Smoking Tobacco: Never Assessed Sex and Gender Information Value Date Recorded Sex Assigned at Male 02/20/2022 10:37 AM EDT Legal Sex Male 2:47 PM EST Gender Identity Male 02/20/2022 10:37 AM EDT Sexual Orientation Choose not to disclose 2021 10:37 AM EDT documented as of this encounter Miscellaneous Notes * Telephone Encounter - Louann Doty RN - 05/19/2022 2:52 PM EST Call placed to pt with help of chief operator reformer Berenice. No answer and VM left that we were calling forsome information about his requested referral. Call back requested and referral sent to PCP * Telephone Encounter - Claudio Valdes - 05/19/2022 1:44 PM EST Tc from pt requesting a [facility] Please contact pt at [phone] documented in this encounter Plan of Treatment Not on file documented as of this encounter Visit Diagnoses Not on filedocumented in this encounter Care Teams Technical Program Manager Relationship Specialty Start Date End Date Nimco Cervantes FNP [address] [place] [address] PCP - General Family Medicine 12/20/21 01/30/23 Berenice Bhatia DO [address] [place] [address] PCP - General Family Medicine 01/31/23 documented as of this encounter
--- OUTSIDE RECORDS SUMMARY | 2025-03-06 11:39 | XMS_ITS | Clinical Summary ---
Author Organization [employer] Address [address] [facility] [address] [place] [address] Care Team Providers Care Insole Doubler Name Role Phone Berenice Bhatia Primary Care Provider Allergies No known active allergies Medications baclofen (Lioresal) 10 MG tablet Take 1 tablet (10 mg) by mouth if needed in the morning, at noon, and at bedtime for muscle spasms. 60 tablet 2 02/01/20 23 Active Diclofenac Sodium 1 % gel Apply 2 g topically if needed in the morning, at noon, in the evening, and at bedtime (pain). 150 g 2 02/01/20 23 Active Blood Pressure kit 1 each 1 (one) time per week. 1 kit 02/15/20 Active atorvastatin (Lipitor) 20 MG tablet Take 1 tablet (20 mg) by mouth Once per day. 90 tablet 3 09/19/19 25 026 Active amLODIPine-vandana sartan (Exforge) 5-160 MG tablet Take 1 tablet by mouth Once per day. 90 tablet 3 02/25/20 25 026 Active amLODIPine (Norvasc) 5 MG tablet Take 1 tablet (5 mg) by mouth Once per day. 90 tablet 3 02/15/20 24 025 Discontinued valsartan (Diovan) 160 MG tablet Take 1 tablet (160 mg) by mouth Once per day. 30 tablet 11 02/15/20 24 025 Discontinued Active Problems Problem Noted Date Diagnosed Date Family history of colon cancer 02/24/2025 Chronic pain of both knees 09/07/2023 Bilateral carpal tunnel syndrome 09/07/2023 Chronic low back pain 01/31/2023 BMI 35.0-35.9,adult 01/31/2023 Obstructive sleep apnea 05/19/2022 Vitamin D deficiency 10/27/2021 Hyperlipidemia 08/17/2021 Essential hypertension 10/06/2020 Resolved Problems Problem Noted Date Diagnosed Date Resolved Date Bilateral hand pain 09/07/2023 02/25/20 Low back pain 06/30/2020 01/31/2023 Encounters Date Type Department Care Team Description 02/24/2025 10:45 AM EST Office Visit [facility] [address] [place] [address] Berenice Bhatia DO Essential hypertension (Primary Dx); Other hyperlipidemia; Bilateral carpal tunnel syndrome; Chronic pain of both knees; Heel pain, bilateral; Obstructive sleep apnea; Healthcare maintenance; Dietary counseling; Exercise counseling; Nocturia; Encounter for immunization 02/24/2025 Travel 02/23/2025 Telephone [facility] [address] [place] [address] Berenice Bhatia DO Chart Prep 02/19/2025 Telephone [facility] [address] [place] [address] Berenice Bhatia DO Recall Appointment 02/19/2025 Travel from Last 3 Months Immunizations Immunization Administration Dates Next Due Influenza injectable quadrivalent preservative f ree 01/31/2023 Influenza, seasonal, injectable, preservative fr ee 02/24/2025,02/15/2024 MMR 03/26/2023 Pfizer Covid-19 Vaccine 12+ 05/31/2021 Pfizer Covid-19 Vaccine 12+ Bivalent 06/22/2021 Pfizer Covid-19 Vaccine 12+ jada-sucrose (Metz C ap) 06/22/2021 Pneumococcal Conjugate PCV 20 01/31/2023 Tdap 03/06/2023 Social History Tobacco Use Types Packs/Day Years Used Date Smoking Tobacco: Never Smokeless Tobacco: Never Tobacco Cessation:Counseling Given: Not Answered Alcohol Use Standard Drinks/Week Comments Never 0 (1 standard drink = 0.6 oz pur e alcohol) Alcohol Answer Date Recorded Frequency of Alcohol Consumption Not on file 03/06/2023 Average Number of Drinks Not on file 023 Frequency of Binge Drinking Not on file 02/21 Score 0 03/06/2023 Depression Answer Date Recorded Patient Health Questionnaire-9 Score 0 02/24/2025 Patient Health Questionnaire-9 Score 0 02/24/2025 Last PHQ-9: Questionnaire Data Not on file 1 04/26/2024 Housing Stability Answer Date Recorded What is your housing situation today? I have enedelia veras 03/17/[address] you li ve. Do you have problems with any of the following? None of the above 03/17/2024 Food Insecurity Answer Date Recorded Within the past 12 months, y ou worried that your food would run out before you got money to buy more: Sometimes True 2024 Within the past 12 months,th e food you bought just didn't last and you didn't have enough money to get more: Sometimes True 07/15/2024 Transportation Answer Date Recorded In the past 12 months, has l ack of transportation kept you from medical appts, meetings, work or from getting things needed for daily living? No 03/17/2024 Utilities Answer Date Recorded In the past 12 months, has t he electric, gas, oil or water company threatened to shut off services in your home? No 03/17/2024 Depression Answer Date Recorded Patient Health Questionnaire-2 Score 0 02/24/2025 Internet Access Answer Date Recorded Internet Access Q1 Yes 03/17/2024 Internet Access Q2 Not on file 03/17/2024 Sex and Gender Information Value Date Recorded Sex Assigned at Male 02/20/2022 10:37 AM EDT Legal Sex Male 2:47 PM EST Gender Identity Male 02/20/2022 10:37 AM EDT Sexual Orientation Choose not to disclose 2021 10:37 AM EDT Last Filed Vital Signs Vital Sign Reading Time Taken Comments Blood Pressure 156/94 02/24/2025 11:20 AM EST Pulse 96 02/24/2025 10:46 AM EST Temperature 36.7 C (98 F) 02/24/2025 10:46 AM EST Respiratory Rate 20 02/24/2025 10:46 AM EST Oxygen Saturation 98% 07/15/2024 11:48 AM EDT Inhaled Oxygen Concentration - - Weight 95.5 kg (210 lb 9.6 oz) 02/24/2025 10:46 AM EST Height 165.1 cm (5' 5 ) 02/24/2025 10:46 AM EST Body Mass Index 35.05 02/24/2025 10:46 AM EST Plan of Treatment Health Maintenance Due Date Last Done Comments CT Colonography 1966 FIT DNA/Cologuard 1966 FIT 1966 FOBT 1966 Sigmoidoscopy 1966 Hepatitis B Vaccines (1 of 3 - 19+ 3-dose series) 1985 Zoster Vaccines (1 of 2) 2016 COVID-19 Vaccine ( season) 2024 06/22/2021, 06/22/2021, 05/31/2021 Disability Screening 07/15/2025 07/15/2024 SDOH Screening 07/15/2025 07/15/2024 Alcohol/Substance Use Screening 02/24/2026 02/24/2025 Depression Screening 02/24/2026 02/24/2025, 02/25/20 Tobacco Screening 02/24/2026 02/24/2025 Colonoscopy 01/08/2029 01/09/2024 Colorectal Cancer Screening 01/08/2029 Lipid Panel 03/12/2029 03/12/2024, 01/21, 09/05/2021, Additional history exists DTaP/Tdap/Td Vaccines (2 - Td or Tdap) 03/06/2033 03/06/2023 RSV Patients and Patients Aged 60 years or older (1 - 1-dose 75+ series) 2041 Pneumococcal Vaccine: 50+ Years Completed 01/31/2023 HIV Screening Completed 03/12/2024, 01/21, 09/05/2021 Hepatitis C Screening Completed 03/12/2024 , 01/31/2023, 09/05/2021 Influenza Vaccine Completed 02/24/2025, , 01/31/2023 HIB Vaccines Aged Out No longer eligi [...] patient's age to complete this topic Meningococcal Vaccine Aged Out No ana cristina kat eligible based on patient's age to complete this topic RSV under 20 months Aged Out No longe r eligible based on patient's age to complete this topic Rotavirus Vaccines Aged Out No longer eligible based on patient's age to complete this topic Procedures Procedure Name Priority Date/Time Associated Diagnosis Comments HEPATITIS C AB W/REFL TO HCV RNA, QN, PCR Routine 03/12/2024 8:24 AM EST Essential hypertension Other hyperlipidemia Bilateral carpal tunnel syndrome Chronic pain of both knees Obstructive sleep apnea Heel pain, bilateral Healthcare maintenance Encounter for immunization HIV 1/2 ANTIGEN/ANTIBODY, FOURTH GENERATION W/RFL Routine 03/12/2024 8:24 AM EST Essential hypertension Other hyperlipidemia Bilateral carpal tunnel syndrome Chronic pain of both knees Obstructive sleep apnea Heel pain, bilateral Healthcare maintenance Encounter for immunization LIPID PANEL, STANDARD Routine 03/12/2024 8:24 AM EST Essential hypertension Other hyperlipidemia Bilateral carpal tunnel syndrome Chronic pain of both knees Obstructive sleep apnea Heel pain, bilateral Healthcare maintenance Encounter for immunization HM COLONOSCOPY Routine 01/09/2024 from Last 3 Months or Most Recently Relevant to Health Maintenance Results * Hepatitis C Antibody with Reflex to HCV, RNA, Quantitative, Real-Time PCR (03/12/2024 8:24 AM EST) Hepatitis C Antibody Nonreactive Nonreactive [facility] Comment:Antibodies to HCV no t detected; does not exclude early acuteHCV infection. Blood Venous blood specimen / Unknown 03/12/2024 8:24 AM EST 03/12/2024 11:22 AM EST us Berenice Bhatia DO LAB BLOOD ORDERABLES Final R esult [facility] [address] [place] [phone] * HIV-1/2 Antigen and Antibodies, Fourth Generation, with Reflexes (03/12/2024 8:24 AM EST) HIV AB/AG Nonreactive Nonreactive [facility] Comment:HIV-1 p24 Ag and/or HIV-1/HIV-2 Ab not detected.A test result that is nonreactive does not exclude thepossibility of exposure to or infection with HIV-1 and/orHIV-2. Nonreactive results in this assay for individualswith prior exposure to HIV-1 and/or HIV-2 may be due toantigen and antibody levels that are below the limit ofdetection of this assay.The [employer] HIV Ag/Ab Combo assay result andsupplemental assay results should be interpreted inconjunction with the patient's clinical presentation,history and other laboratory results. If the results areinconsistent with clinical evidence, additional testing issuggested to confirm the result. Blood Venous blood specimen / Unknown 03/12/2024 8:24 AM EST 03/12/2024 11:22 AM EST us Berenice Bhatia DO LAB BLOOD ORDERABLES Final R esult [facility] [address] [place] [phone] * (ABNORMAL) Lipid Panel, Standard (03/12/2024 8:24 AM EST) Triglycerides 187(H) <150 mg/dL [facility] Comment:Desirable Triglyceri de: less than 150 mg/dLBorderline High Triglyceride 150-199 mg/dLHigh Triglyceride: 200-499 mg/dLVery High Triglyceride: greater than or equal to 5OO mg/dL Cholesterol 228(H) <200 mg/dL [facility] Comment:Desirable Cholestero l: less than 200 mg/dLBorderline High Cholesterol: 200-239 mg/dLHigh Cholesterol: greater than 239 mg/dL LDL Cholesterol Calculated 138(H) <100 mg/dL [facility] Comment:Desirable LDL: less than 100 mg/dLNear Optimal/Above Optimal LDL: 110- 129 mg/dLBorderline High LDL: 130-159 mg/dLHigh LDL: 160-189 mg/dLVery High LDL: greater than or equal to 190 mg/dL HDL Cholesterol 53 >40 mg/dL [facility] Comment:Desirable HDL: great er than 40 mg/dL Note: This HDL assay may give artificially low results in patients with liver disease. Blood Venous blood specimen / Unknown 03/12/2024 8:24 AM EST 03/12/2024 11:22 AM EST us Berenice Bhatia DO LAB BLOOD ORDERABLES Final R esult [facility] [address] [place] [phone] * Hm Colonoscopy (01/09/2024) Colonoscopy Normal Normal Narrative Francy Martinez - 01/09/2024 See external hospital admission note from 01/09/2024 us Historical Provider HEALTH MAINTENANCE Final Result from Last 3 Months or Most Recently Relevant to Health Maintenance Insurance [address] [address] C3 HSN FULL Care Teams Insole Doubler Relationship Specialty Start Date End Date Berenice Bhatia DO [address] [place] [id number] PCP - General Family Medicine 01/31/23
[2025-03-06 12:22] LABS: Hematocrit 45.0 % (42.0-52.0); Hemoglobin 14.6 g/dl (14.0-18.0); Mean Corpuscular HGB Conc 32.4 g/dl (31.0-36.0); Mean Corpuscular Hemoglobin 29.9 pg (27.0-33.0); Mean Corpuscular Volume 92.2 fL (80.0-98.0); NRBC Abs Auto 0.000 X10*3/uL (0.0-0.012); NRBC Pct Auto 0.0 /100WBC (0.0-0.2); Platelet Count 252 X10*3/uL (160-400); Red Blood Count 4.88 X10*6/uL (4.60-5.80); White Blood Count 5.2 X10*3/uL (4.8-10.8)
[2025-03-06 12:53] LABS: Appearance Urine Clear; Glucose Urine UA Negative (Negative); PH 6.5 (5.0-9.0); Specific Gravity - Urine 1.020 (1.005-1.025); UMIC TRIGGER UA YES
[2025-03-06 13:01] LABS: Anion Gap 10 (12-20); Blood Urea Nitrogen 15 mg/dL (9-16); Carbon Dioxide 31 mmol/L (22-29); Chloride 106 mmol/L (96-108); Estimated Glomerular Filt Rate > 60; Potassium 4.2 mmol/L (3.3-5.1); Sodium 143 mmol/L (135-145)
[2025-03-06 13:02] LABS: Alanine Aminotransferase 22 U/L (0-40); Albumin Level 4.3 g/dL (3.5-5.0); Alkaline Phosphatase 68 U/L (39-117); Aspartate Amino Transferase 24 U/L (5-37); Calcium 9.3 mg/dL (8.4-10.2); Cholesterol 194 mg/dL (<200); HDL Cholesterol 45 mg/dL (>40); Total Protein 7.5 g/dL (6.5-8.0); Triglycerides 214 mg/dL (<150)
[2025-03-06 13:12] LABS: HBS Num1 1.83 mIU/mL (0-7.99); HBc Num1 0.13 S/CO (0.00-0.79); HBsAGNum1 0.35 S/CO (0.00-0.99); HIV Num 1 0.05 S/CO (0.00-0.99); Hepatitis B Surface Antigen Negative (Negative); ~HepC Num1 0.09 S/CO (0.00-0.79); ~Hepatitis B Surface Antibody NONREACTIVE (Nonreactive); ~Hepatitis C Antibody Nonreactive (Nonreactive)
[2025-03-06 13:20] LABS: Free T4 (Free Thyroxine) 0.92 ng/dL (0.71-1.85); Thyroid Stimulating Hormone 1.16 uIU/mL (0.32-4.0)
[2025-03-06 13:22] LABS: ~Hepatitis A Antibody IgG 10.29 S/CO (0.00-0.99)
== END 2025-03-06 09:58 | disposition home or self-care (01) ==
LOC: HO.HHCL 09:57
PROVIDERS: PCP Family Medicine; Visit Provider Family Medicine
DX: Z00.00 Encounter for general adult medical examination without abnormal findings (principal); I10 Essential (primary) hypertension; G56.03 Carpal tunnel syndrome, bilateral upper limbs; G47.33 Obstructive sleep apnea (adult) (pediatric); E78.49 Other hyperlipidemia; R35.1 Nocturia; M25.561 Pain in right knee; M25.562 Pain in left knee; M79.671 Pain in right foot; M79.672 Pain in left foot; G89.29 Other chronic pain; Z71.3 Dietary counseling and surveillance; Z71.82 Exercise counseling; Z11.59 Encounter for screening for other viral diseases; Z11.4 Encounter for screening for human immunodeficiency virus [HIV]; Z20.6 Contact with and (suspected) exposure to human immunodeficiency virus [HIV]; Z20.5 Contact with and (suspected) exposure to viral hepatitis
CPT/HCPCS: 36415; 80048; 80061; 80076; 81001; 82043; 82306; 82570; 83036; 84153; 84439; 84443; 85027; 86592; 86704; 86706; 86708; 86803; 87086; 87340; 87389

== ENCOUNTER 2025-03-12 08:27 | Outpatient (REF) | payer MEDICAID, SELFPAY ==
--- OUTSIDE RECORDS SUMMARY | 2025-03-12 09:12 | XMS_ITS | Encounter Summary ---
Author Organization [employer] Address [address] [facility] [address] [place] [address] Care Team Providers Care Delinquency Counselor Name Role Phone [facility] Primary Care Provider [phone] Berenice Bhatia DO Primary Care Provider Reason for Visit * Reason Onset Date Comments Referral 05/19/2022 Encounter Details Date Type Department Care Team ([facility] st Contact Info) Description 05/19/2022 Telephone [facility] [address] [place], [place] [phone] Friant [facility] [address] [place], [place] [phone] Referral Social History Tobacco Use Types Packs/Day [...] Call placed to pt with help of halal butcher Berenice. No answer and VM left that we were calling forsome information about his requested referral. Call back requested and referral sent to PCP * Telephone Encounter - Claudio Valdes - 05/19/2022 1:44 PM EST Tc from pt requesting a [facility] Please contact pt at [phone] documented in this encounter Plan of Treatment Not on file documented as of this encounter Visit Diagnoses Not on filedocumented in this encounter Care Teams Delinquency Counselor Relationship Specialty Start Date End Date Nimco Cervantes FNP [address] [place] [address] PCP - General Family Medicine 12/20/21 01/30/23 Berenice Bhatia DO [address] [place] [address] PCP - General Family Medicine 01/31/23 documented as of this encounter
--- OUTSIDE RECORDS SUMMARY | 2025-03-12 09:12 | XMS_ITS | Encounter Summary ---
Author Organization [employer] Address [address] [facility] [address] [place] [address] Care Team Providers Care Chief Cruiser Name Role Phone Nimco Cervantes [facility] Primary Care Provider [phone] Berenice Bhatia DO Primary Care Provider [phone] Encounter Details Date Type Department Care Team (Late st Contact Info) Description 05/19/2022 Orders Only [facility] [address] [place] [address] Louann Doty RN Social History Tobacco Use [...] on filedocumented in this encounter Care Teams Chief Cruiser Relationship Specialty Start Date End Date Nimco Cervantes [facility] [address] [place] [phone] PCP - General Family Medicine 12/20/21 01/30/23 Berenice Bhatia DO [address] [place] [id number] PCP - General Family Medicine 01/31/23 documented as of this encounter
--- OUTSIDE RECORDS SUMMARY | 2025-03-12 09:12 | XMS_ITS | Clinical Summary ---
Author Organization [employer] Address [address] [facility] [address] [place] [address] Care Team Providers Care Statistical Geneticist Name Role Phone Berenice Bhatia Primary Care [...] Encounters Date Type Department Care Team Description 03/10/2025 Telephone [facility] [address] [place] [phone] Berenice Bhatia DO Results 02/24/2025 10:45 AM EST Office Visit [address] [phone] Berenice Bhatia DO Essential hypertension (Primary Dx); Other hyperlipidemia; Bilateral carpal tunnel syndrome; Chronic pain of both knees; Heel pain, bilateral; Obstructive sleep apnea; Healthcare maintenance; Dietary counseling; Exercise counseling; Nocturia; Encounter for immunization 02/24/2025 Travel 02/23/[address] [address] Berenice Bhatia DO Chart Prep 02/19/[address] [address] Berenice Bhatia DO Recall Appointment 02/19/2025 Travel [...] 02/25/20 Tobacco Screening 02/24/2026 02/24/2025 Colonoscopy 01/08/2029 01/09/2024, 01/09/2024 Colorectal Cancer Screening 01/08/2029 Lipid Panel 03/06/2030 03/06/2025, 02/22, 01/31/2023, Additional history exists DTaP/Tdap/Td Vaccines (2 - Td or Tdap) 03/06/2033 03/06/2023 RSV Patients and Patients Aged 60 years or older (1 - 1-dose 75+ series) 2041 Pneumococcal Vaccine: 50+ Years Completed 01/31/2023 Influenza Vaccine Completed 02/24/2025, , 01/31/2023 HIV Screening Completed 03/06/2025, 02/22, 01/31/2023, Additional history exists Hepatitis C Screening Completed 03/06/2025 , 03/12/2024, 01/31/2023, Additional history exists HIB Vaccines Aged Out No longer eligi [...] Procedure Name Priority Date/Time Associated Diagnosis Comments URINALYSIS, COMPLETE Routine 03/06/2025 10:03 AM EST Nocturia PSA, SCREEN Routine 03/06/2025 10:03 AM EST Nocturia HEPATITIS B CORE AB TOTAL Routine 03/06/2025 10:03 AM EST Essential hypertension Other hyperlipidemia Bilateral carpal tunnel syndrome Chronic pain of both knees Heel pain, bilateral Obstructive sleep apnea Healthcare maintenance Dietary counseling Exercise counseling HEPATITIS A ANTIBODY, TOTAL Routine 03/06/2025 10:03 AM EST Essential hypertension Other hyperlipidemia Bilateral carpal tunnel syndrome Chronic pain of both knees Heel pain, bilateral Obstructive sleep apnea Healthcare maintenance Dietary counseling Exercise counseling HEPATITIS B SURFACE ANTIBODY, QUALITATIVE Routine 03/06/2025 10:03 AM EST Essential hypertension Other hyperlipidemia Bilateral carpal tunnel syndrome Chronic pain of both knees Heel pain, bilateral Obstructive sleep apnea Healthcare maintenance Dietary counseling Exercise counseling RPR (MONITOR) W/REFL TITER Routine 03/06/2025 10:03 AM EST Essential hypertension Other hyperlipidemia Bilateral carpal tunnel syndrome Chronic pain of both knees Heel pain, bilateral Obstructive sleep apnea Healthcare maintenance Dietary counseling Exercise counseling HEPATITIS C AB W/REFL TO HCV RNA, QN, PCR Routine 03/06/2025 10:03 AM EST Essential hypertension Other hyperlipidemia Bilateral carpal tunnel syndrome Chronic pain of both knees Heel pain, bilateral Obstructive sleep apnea Healthcare maintenance Dietary counseling Exercise counseling HIV 1/2 ANTIGEN/ANTIBODY, FOURTH GENERATION W/RFL Routine 03/06/2025 10:03 AM EST Essential hypertension Other hyperlipidemia Bilateral carpal tunnel syndrome Chronic pain of both knees Heel pain, bilateral Obstructive sleep apnea Healthcare maintenance Dietary counseling Exercise counseling HEPATITIS B SURFACE ANTIGEN, EIA Routine 03/06/2025 10:03 AM EST Essential hypertension Other hyperlipidemia Bilateral carpal tunnel syndrome Chronic pain of both knees Heel pain, bilateral Obstructive sleep apnea Healthcare maintenance Dietary counseling Exercise counseling ALBUMIN, RANDOM URINE W/CREATININE Routine 03/06/2025 10:03 AM EST Essential hypertension Other hyperlipidemia Bilateral carpal tunnel syndrome Chronic pain of both knees Heel pain, bilateral Obstructive sleep apnea Healthcare maintenance Dietary counseling Exercise counseling CBC Routine 03/06/2025 10:03 AM EST Essential hypertension Other hyperlipidemia Bilateral carpal tunnel syndrome Chronic pain of both knees Heel pain, bilateral Obstructive sleep apnea Healthcare maintenance Dietary counseling Exercise counseling BASIC METABOLIC PANEL Routine 03/06/2025 10:03 AM EST Essential hypertension Other hyperlipidemia Bilateral carpal tunnel syndrome Chronic pain of both knees Heel pain, bilateral Obstructive sleep apnea Healthcare maintenance Dietary counseling Exercise counseling HEMOGLOBIN A1C Routine 03/06/2025 10:03 AM EST Essential hypertension Other hyperlipidemia Bilateral carpal tunnel syndrome Chronic pain of both knees Heel pain, bilateral Obstructive sleep apnea Healthcare maintenance Dietary counseling Exercise counseling HEPATIC FUNCTION PANEL Routine 03/06/2025 10:03 AM EST Essential hypertension Other hyperlipidemia Bilateral carpal tunnel syndrome Chronic pain of both knees Heel pain, bilateral Obstructive sleep apnea Healthcare maintenance Dietary counseling Exercise counseling TSH Routine 03/06/2025 10:03 AM EST Essential hypertension Other hyperlipidemia Bilateral carpal tunnel syndrome Chronic pain of both knees Heel pain, bilateral Obstructive sleep apnea Healthcare maintenance Dietary counseling Exercise counseling LIPID PANEL, STANDARD Routine 03/06/2025 10:03 AM EST Essential hypertension Other hyperlipidemia Bilateral carpal tunnel syndrome Chronic pain of both knees Heel pain, bilateral Obstructive sleep apnea Healthcare maintenance Dietary counseling Exercise counseling VITAMIN D,25-OH,TOTAL,IA Routine 03/06/2025 10:03 AM EST Essential hypertension Other hyperlipidemia Bilateral carpal tunnel syndrome Chronic pain of both knees Heel pain, bilateral Obstructive sleep apnea Healthcare maintenance Dietary counseling Exercise counseling T4, FREE Routine 03/06/2025 10:03 AM EST Essential hypertension Other hyperlipidemia Bilateral carpal tunnel syndrome Chronic pain of both knees Heel pain, bilateral Obstructive sleep apnea Healthcare maintenance Dietary counseling Exercise counseling CULTURE, URINE, ROUTINE Routine 03/06/2025 10:03 AM EST Nocturia HM COLONOSCOPY Routine 01/09/2024 from Last 3 Months or Most Recently Relevant to Health Maintenance Results * PSA, Screen (03/06/2025 10:03 AM EST) PSA, Total 1.31 <0.05 - 4.0 ng/mL [facility] Comment:PSA methodology: Peggy Shirley i ChemiluminescentMicroparticle Immunoassay (CMIA) Blood Venous blood specimen / Unknown 03/06/2025 10:03 AM EST 03/06/2025 12:10 PM EST Berenice Bhatia DO LAB BLOOD ORDERABLES Final R esult [facility] [address] [place] [phone] * Vitamin D, 25-Hydroxy, Total, Immunoassay (03/06/2025 10:03 AM EST) Vitamin D 25-OH Total 31.8 >30 ng/mL [facility] Comment: Health Based Reference Values*< 20 ng/mL Wsqryrucs30-55 ng/mL Insufficient> 30 ng/mL Sufficient*Rosanne STEIN. N Engl J Med. 2007;357:266-280There is no well-established upper level of normal vitamin Dlevels. Some laboratories use 50 ng/mL as an upper limit ofnormal. However, toxicity is patient-dependent and may occurat any level. Careful correlation with the patient'spresentation is necessary and, if there is concern forvitamin D toxicity, treatment should be consideredirrespective of the serum level.Care must be taken in interpreting Vitamin D results fromdifferent laboratories and methodologies. Published datademonstrated that results from patients undergoinghemodialysis may show a negative bias when tested withvarious automated 25-OH vitamin D assays when compared toLC-MS/MS.When testing samples from patients whose predominant form ofVitamin D is Vitamin D2, such as patients receiving VitaminD2 supplementation, results that are subtherapeutic shouldbe confirmed with another method such as LC-MS/MS. Blood Venous blood specimen / Unknown 03/06/2025 10:03 AM EST 03/06/2025 12:10 PM EST Berenice Bhatia LAB BLOOD ORDERABLES Final R esult Performing Organization Address [facility] Co de Phone Number [facility] [address] [place] [phone] * Albumin, Random Urine W/Creatinine (03/06/2025 10:03 AM EST) Creatinine, Urine 155.23 mg/dL [facility] Microalbumin Urine <5.0 mg/L [facility] Microalbum Creatinine Ratio Ur TNP <30 ug/mg cr [facility] Comment:Unable to calculate albumin/creatinine ratio due to lowmicroalbumin or creatinine result. Urine (Urine, Random) 03/06/2025 10:03 AM EST 03/06/2025 11:35 AM EST Berenice Bhatia DO LAB URINE ORDERABLES Final R esult Performing Organization Address [facility] Co de Phone Number [facility] [address] [place] [phone] * Hepatitis C Antibody with Reflex to HCV, RNA, Quantitative, Real-Time PCR (03/06/2025 10:03 AM EST) Hepatitis C Antibody Nonreactive Nonreactive [facility] Comment:Antibodies to HCV no t detected; does not exclude early acuteHCV infection. Blood Venous blood specimen / Unknown 03/06/2025 10:03 AM EST 03/06/2025 12:10 PM EST Berenice Bhatia DO LAB BLOOD ORDERABLES Final R esult Performing Organization Address City/[facility]/ZIP Co de Phone Number [facility] [address] [place] [phone] * Hepatitis A Antibody, Total (03/06/2025 10:03 AM EST) Hepatitis A Antibody IgG REACTIVE Nonreactive [facility] Comment:The presence of IgG anti-HAV implies past HAV infection(recent or distant) or vaccination against HAV. Blood Venous blood specimen / Unknown 03/06/2025 10:03 AM EST 03/06/2025 12:10 PM EST Berenice Bhatia DO LAB BLOOD ORDERABLES Final R esult Performing Organization Address [facility] Co de Phone Number [facility] [address] [place] [phone] * Hepatitis B surface antigen, EIA (03/06/2025 10:03 AM EST) Hepatitis B Surface Ag Negative Negative [facility] Blood Venous blood specimen / Unknown 03/06/2025 10:03 AM EST 03/06/2025 12:10 PM EST Berenice Jannette DO LAB BLOOD ORDERABLES Final R esult Performing Organization Address City/[facility] Co de Phone Number [facility] [address] [place] [phone] * Hepatitis B Core Antibody, Total (03/06/2025 10:03 AM EST) Hepatitis B Core Antibody Nonreactive Nonreactive [facility] Blood Venous blood specimen / Unknown 03/06/2025 10:03 AM EST 03/06/2025 12:10 PM EST Berenice hBatia DO LAB BLOOD ORDERABLES Final R esult Performing Organization Address [facility]/ZIP Co de Phone Number [facility] [address] [place] [phone] * RPR (Monitor) with Reflex to??Titer (03/06/2025 10:03 AM EST) RPR (Monitor) w/Refl Titer NON-REACTI VE NON-REACT DEBRA [facility] Comment:THIS TEST WAS PERFOR MED AT:[facility] [place] [phone] ARRINGTON MD Rapid Plasma Reagin Ab Titer TNP [facility] Blood Venous blood specimen / Unknown 03/06/2025 10:03 AM EST 03/06/2025 12:10 PM EST Berenice Bhatia DO LAB BLOOD ORDERABLES Final R [facility] Performing Organization Address [facility] Co de Phone Number [facility] [address] [place] [phone] * HIV-1/2 Antigen and Antibodies, Fourth Generation, with Reflexes (03/06/2025 10:03 AM EST) HIV AB/AG Nonreactive Nonreactive [facility] Comment:HIV-1 p24 Ag and/or HIV-1/HIV-2 Ab not detected.A test result that is nonreactive does not exclude thepossibility of exposure to or infection with HIV-1 and/orHIV-2. Nonreactive results in this assay for individualswith prior exposure to HIV-1 and/or HIV-2 may be due toantigen and antibody levels that are below the limit ofdetection of this assay.The J.[employer]. ink HIV Ag/Ab Combo assay result andsupplemental assay results should be interpreted inconjunction with the patient's clinical presentation,history and other laboratory results. If the results areinconsistent with clinical evidence, additional testing issuggested to confirm the result. Blood Venous blood specimen / Unknown 03/06/2025 10:03 AM EST 03/06/2025 12:10 PM EST Berenice Bhatia LAB BLOOD ORDERABLES Final R esult Performing Organization Address City/[facility]/ZIP Co de Phone Number [facility] [address] [place] [phone] * Hepatitis B Surface Antibody, Qualitative (03/06/2025 10:03 AM EST) ~Hepatitis B Surface Antibody NONREACTIVE Nonreactive [facility] Comment:Nonreactive: < 8.00 mIU/mL Blood Venous blood specimen / Unknown 03/06/2025 10:03 AM EST 03/06/2025 12:10 PM EST Berenice Bhatia LAB BLOOD ORDERABLES Final R esult Performing Organization Address City/[facility] Co de Phone Number [facility] [address] [place] [phone] * (ABNORMAL) Urinalysis Complete (03/06/2025 10:03 AM EST) Color Urine Yellow [facility] Appearance Urine Clear [facility] PH 6.5 5.0 - 9.0 [facility] Glucose Urine UA Negative Negative mg/dL [facility] Urine Blood Small (1+)(A) Negative [facility] Specific [place] - Urine 1.020 1.005 - 1.025 [facility] Urine Protein Negative Neg-Trace mg/dL [facility] Urine Ketones Negative Negative mg/dL [facility] Nitrite Urine Negative Negative [facility] Leukocyte Esterase Urine Negative Negative [facility] RBC Urine 11-20(A) 0 - 2 /HPF [facility] Urine WBC 0-5 0 - 5 /HPF [facility] Urine Squamous Epithelial Cell 0-2 0 - 2 /HPF [facility] Urine Bacteria None Seen None Seen [facility] Hyaline Casts, Urine 0-2 0 - 2 /LPF [facility] Urine (Urine, Random) 03/06/2025 10:03 AM EST 03/06/2025 11:35 AM EST us Berenice Bhatia DO LAB URINE ORDERABLES Final R esult [facility] [address] [place], [place] [phone] * CBC (03/06/2025 10:03 AM EST) White Blood Count 5.2 4.8 - 10.8 X10*3/uL [facility] Red Blood Count 4.88 4.60 - 5.80 X10*6/uL [facility] Hemoglobin 14.6 14.0 - 18.0 g/dl [facility] Hematocrit 45.0 42.0 - 52.0 % [facility] Mean Corpuscular Volume 92.2 80.0 - 98.0 fL [facility] Mean Corpuscular Hemoglobin 29.9 27.0 - 33.0 pg [facility] Mean Corpuscular HGB Conc 32.4 31.0 - 36.0 g/dl [facility] Red Cell Distribution Width 13.0 11.0 - 16.0 % [facility] Platelet Count 252 160 - 400 X10*3/uL [facility] Mean Platelet Volume 11.8 9.4 - 12.4 fL [facility] NRBC Pct Auto 0.0 0.0 - 0.2 /100WBC [facility] NRBC Abs Auto 0.000 0.0 - 0.012 X10*3/uL [facility] Blood Venous blood specimen / Unknown 03/06/2025 10:03 AM EST 03/06/2025 12:10 PM EST us Berenice Bhatia DO LAB BLOOD ORDERABLES Final R esult Performing Organization Address [facility]/ZIP Co de Phone Number [facility] [address] [place] [phone] * Culture, Urine, Routine (03/06/2025 10:03 AM EST) Urine Urine specimen obtained by clean catch procedure / Unknown 03/06/2025 10:03 AM EST 03/06/2025 11:35 AM EST Comment:UACC Narrative [facility] - 03/07/2025 12:58 PM EST Urine Culture No growth. Specimen Source: Urine clean catch Berenice Bhatia DO LAB MICROBIOLOGY - GENERAL O RDERABLES Final Result Performing Organization Address [facility] Co de Phone Number [facility] [address] [place] [phone] * TSH (03/06/2025 10:03 AM EST) Thyroid Stimulating Hormone 1.16 0.32 - 4.0 uIU/mL [facility] Comment:TSH 3rd Generation ( [facility]) Blood Venous blood specimen / Unknown 03/06/2025 10:03 AM EST 03/06/2025 12:10 PM EST us Berenice Bhatia DO LAB BLOOD ORDERABLES Final R esult Performing Organization Address City/[facility] Co de Phone Number [facility] [address] [place] [phone] * T4, Free (03/06/2025 10:03 AM EST) Free T4 (Free Thyroxine) 0.92 0.71 - 1.85 ng/dL [facility] Blood Venous blood specimen / Unknown 03/06/2025 10:03 AM EST 03/06/2025 12:10 PM EST Berenice Jannette DO LAB BLOOD ORDERABLES Final R esult Performing Organization Address City/[facility]/ZIP Co de Phone Number [facility] [address] [place] [phone] * Hemoglobin A1c (03/06/2025 10:03 AM EST) Hemoglobin A1c 5.6 <6.0 % [facility] Comment:Hemoglobin A1C Refer ence Range Adults: 4.8 - 6.0 % Non diabetic: < 6.0 % Goal: < 7.0 %Additional Action Suggested: > 8.0 %Note: Hemoglobin A1c results are invalid for patients with abnormal amounts of HbF. Blood transfusions may impact the HbA1c concentration in the patient sample. Estimated Average Glucose 114 mg/dL [facility] Comment:eAG = Estimated ave rage glucose which is %A1C expressed asaverage glucose, using the formula of the [id number] Glucose study (ADAG), Diabetes Care, Vol.31,#8,Nov. 2007 Blood Venous blood specimen / Unknown 03/06/2025 10:03 AM EST 03/06/2025 12:10 PM EST Berenice Jannette DO LAB BLOOD ORDERABLES Final R [facility] Performing Organization Address City/[facility]/ZIP Co de Phone Number [facility] [address] [place] [phone] * Hepatic Function Panel (03/06/2025 10:03 AM EST) Bilirubin, Total 0.5 0.0 - 1.0 mg/dL [facility] Bilirubin, Direct 0.1 0.0 - 0.5 mg/dL [facility] Aspartate Amino Transferase 24 5 - 37 U/L [facility] Alanine Aminotransferase 22 0 - 40 U/L [facility] Total Protein 7.5 6.5 - 8.0 g/dL [facility] Albumin Level 4.3 3.5 - 5.0 g/dL [facility] Alkaline Phosphatase 68 39 - 117 U/L [facility] Blood Venous blood specimen / Unknown 03/06/2025 10:03 AM EST 03/06/2025 12:10 PM EST Berenice Bhatia LAB BLOOD ORDERABLES Final R esult Performing Organization Address City/[facility] Co de Phone Number [facility] [address] [place] [phone] * (ABNORMAL) Lipid Panel, Standard (03/06/2025 10:03 AM EST) Triglycerides 214(H) <150 mg/dL [facility] Comment:Desirable Triglyceri de: less than 150 mg/dLBorderline High Triglyceride 150-199 mg/dLHigh Triglyceride: 200-499 mg/dLVery High Triglyceride: greater than or equal to 5OO mg/dL Cholesterol 194 <200 mg/dL [facility] Comment:Desirable Cholestero l: less than 200 mg/dLBorderline High Cholesterol: 200-239 mg/dLHigh Cholesterol: greater than 239 mg/dL LDL Cholesterol Calculated 107(H) <100 mg/dL [facility] Comment:Desirable LDL: less than 100 mg/dLNear Optimal/Above Optimal LDL: 110- 129 mg/dLBorderline High LDL: 130-159 mg/dLHigh LDL: 160-189 mg/dLVery High LDL: greater than or equal to 190 mg/dL HDL Cholesterol 45 >40 mg/dL [facility] Comment:Desirable HDL: great er than 40 mg/dL Note: This HDL assay may give artificially low results in patients with liver disease. Blood Venous blood specimen / Unknown 03/06/2025 10:03 AM EST 03/06/2025 12:10 PM EST Berenice Bhatia DO LAB BLOOD ORDERABLES Final R esult Performing Organization Address City/[facility]/ZIP Co de Phone Number [facility] [address] [place] [phone] * (ABNORMAL) Basic Metabolic Panel (03/06/2025 10:03 AM EST) Sodium 143 135 - 145 mmol/L [facility] Potassium 4.2 3.3 - 5.1 mmol/L [facility] Chloride 106 96 - 108 mmol/L [facility] Carbon Dioxide 31(H) 22 - 29 mmol/L [facility] Anion Gap 10(L) 12 - 20 [facility] Urea Nitrogen (BUN) 15 9 - 16 mg/dL [facility] Creatinine, Serum 0.98 0.5 - 1.4 mg/dL [facility] Estimated Glomerular Filt Rate >60 [facility] Comment:Chronic Kidney Disea se: Estimated GFR < 60 mL/min/1.01b5[place] Kidney Disease: Estimated GFR < 15 mL/min/1.73m2 Glucose 93 60 - 115 mg/dL [facility] Calcium 9.3 8.4 - 10.2 mg/dL [facility] Blood Venous blood specimen / Unknown 03/06/2025 10:03 AM EST 03/06/2025 12:10 PM EST us Berenice Bhatia DO LAB BLOOD ORDERABLES Final R esult [facility] [address] [place] [phone] * Hm Colonoscopy (01/09/2024) Colonoscopy Normal Normal Narrative Francy Martinez - 01/09/2024 See external hospital admission note from 01/09/2024 Historical Provider HEALTH MAINTENANCE Final Result from Last 3 Months or Most Recently Relevant to Health Maintenance Insurance [facility] C3 HSN FULL Care Teams Statistical Geneticist Relationship Specialty Start Date End Date Berenice Bhatia DO [address] [place] [phone] PCP - General Family Medicine 01/31/23
--- OUTSIDE RECORDS SUMMARY | 2025-03-12 09:12 | XMS_ITS | Encounter Summary ---
Author Organization [employer] Address [address] [facility] [address] [place] [address] Care Team Providers Care Skills Instructor Name Role Phone Berenice Bhatia DO Primary Care Provider + [phone] Reason for Visit * Reason Onset Date Comments Results 03/10/2025 Encounter Details Date Type Department Care Team ([facility] st Contact Info) Description 03/10/2025 Telephone [facility] MEDICINE [address] [place], [place] [phone] Berenice Bhatia DO [address] [place], [place] [phone] Results Social History Tobacco Use Types Packs/Day Years Used Date Smoking Tobacco: Never Smokeless Tobacco: Never Alcohol Use Standard Drinks/Week Comments Never 0 [...] as of this encounter Miscellaneous Notes * Addendum Note - George Argueta RN - 03/12/2025 8:52 AM ESTAddended by: GEORGE ARGUETA on: 03/12/2025 08:52 AM Modules accepted: Orders * Telephone Encounter - Mae Cloud RN - 03/10/2025 4:06 PM EST RN reviewed urinalysis results with PCP which returned showing 11-20 RBC's. PCP would like patient to have a renal/bladder US, urine cytology test and be referred to urology. TC placed to patient [phone], patient asked RN to speak to daughter. RN spoke to daughter to inform of above message. Daughter reports she will bring the patient to the lab tomorrow for urine cytology. Daughter advised the patient will receive a TC with US appointment date and time and also a letter in the mail or a call from urology office with appointment date and time. Daughter did not have further questions/concerns. Daughter to f/u PRN. documented in this encounter Plan of Treatment Scheduled Orders Name Type Priority Associated Diagnoses Orde r Schedule Cytology, urine Pathology and Cytology Routine Nocturia Expected: 03/12/2025 (Approximate), Expires: 03/12/2026 documented as of this encounter Visit Diagnoses Diagnosis Nocturia documented in this encounter Additional Health Concerns Assessment Noted Time PHQ-9 Depression Total Score: 0 02/25/20 25 12:50 PM EST documented as of this encounter Care Teams Skills Instructor Relationship Specialty Start Date End Date Berenice Bhatia DO [address] [place] [id number] PCP - General Family Medicine 01/31/23 documented as of this encounter
== END 2025-03-12 08:28 | disposition home or self-care (01) ==
LOC: HO.HHCL 08:27
PROVIDERS: PCP Family Medicine; Visit Provider Family Medicine
DX: R35.1 Nocturia (principal)
CPT/HCPCS: 88112

== ENCOUNTER 2025-04-08 11:40 | Outpatient (AMB) | payer MEDICAID, SELFPAY ==
--- NOTE | 2025-04-08 11:43 | MHC.OFFVIS ---
Vital Signs 04/08/25 11:49 Height 5 ft 5 in Weight 213 lb BMI 35.4 Intake Visit Reasons: OV-discuss RT CTR Intake Note: Chuck is a 59 year old right hand dominant male who presents today for Follow Up of his Bilateral Carpal Tunnel Syndrome. Patient was last seen by Dr. Knox on 01/28/24 where Right Carpal Tunnel Release was discussed and scheduled for February,; cancelled due to illness. At today's visit he states that the right hand is still having numbness and tingling. He reports that the pain in the right wrist is cramping now with pain radiating into the fingers but never radiates into the forearm. Patient states that he has not tried OT or at home exercises since last visit back in 2023. Patient's stated that the right wrist is his main concern then he would like to be booked for his left wrist. IMPRESSION 04/04/23: Moderate compression palsy of the median nerve at the wrist bilaterally consistent with moderate carpal tunnel syndrome. Normal EMG on the right C5-T1 innervated muscles Furniture Technician Required: Yes Furniture Technician Services: Furniture Technician Present Furniture Technician Name: Mauricio [id number] Allergies No Known Allergies (No Known Allergies*) Allergy (Verified 01/28/24 15:10) HPI HPI OV-discuss RT CTR: Details: Chuck is a 59 year old right hand dominant male who presents today for Follow Up of his Bilateral Carpal Tunnel Syndrome. Patient was last seen by Dr. Knox on 01/28/24 where Right Carpal Tunnel Release was discussed and scheduled for February,; cancelled due to illness. At today's visit he states that the right hand is still having numbness and tingling that has intermittent, daily, and worse at night.. He reports that the pain in the right wrist is cramping now with pain radiating into the fingers but never radiates into the forearm. Patient states that he has not tried OT or at home exercises since last visit back in 2023. Patient's stated that the right wrist is his main concern then he would like to be booked for his left wrist. IMPRESSION 04/04/23: Moderate compression palsy of the median nerve at the wrist bilaterally consistent with moderate carpal tunnel syndrome. Normal EMG on the right C5-T1 innervated muscles [facility] Surgical History History of surgery on lower extremity Family History Mother Bone cancer Colon cancer Father Heart disease Social History Household Members: Spouse Are you a primary med care manager to a significant other at home: No Do you presently have visiting nurse or other home services: No Alcohol intake: never Patient Tobacco Use Status: Never used Tobacco Current occupational status: disabled Physical Exam Vital Signs: BMI result Body Mass Index 35.4 Extrem Other: Neuro: Normal sensation of the tips of all digits of bilateral hands at this time No thenar or intrinsic wasting. Good APB muscle firing and good finger cross. Vascular: Capillary refill brisk. ROM: Patient can make a fist and extend all their digits. Skin: No lacerations or abrasions noted. General: No ecchymosis. No erythema or evidence of infection. Assessment & Plan Assessment & Plan (1) Bilateral carpal tunnel syndrome: Code(s): G56.03 - Carpal tunnel syndrome, bilateral upper limbs Category: Medical Plan 1. Carpal tunnel syndrome, right Symptoms intermittent, daily, worse at night I educated the patient about the condition. I discussed both operative and nonoperative treatment options. The patient would like to proceed with surgery. The risks and benefits of operative treatment were discussed with the patient and the patient wishes to proceed with surgery. These risks include, but are not limited to, risk of damage to blood vessels, nerves, tendons, infection, recurrence, incomplete relief of preoperative symptoms, persistent pain, possible need for further surgery, and the risks associated with regional blocks and/or anesthesia. Plan is to take the patient to the operating room at some point in the next few weeks for the following procedures: 1. Right carpal tunnel release under local anesthesia All of the preoperative paperwork including the consent was discussed today. All of the patient's questions were answered in the clinic today. The patient understands that they will be in contact with our neurosurgical nurse practitioner to discuss scheduling their procedure. Patient denies diabetes, blood thinners, asthma, heart issues, lung issues, kidney issues, or current smoking. 2. Carpal tunnel syndrome, left Symptoms intermittent, but daily, worse at night At this time, patient would like to pursue operative treatment on the right side prior to any surgical intervention on the left Patient was informed that we can get the left side signed up for surgery if he is recovering well on the right side at his postoperative visit Patient was amenable to this plan Coding Level of Care Code Est Pt Level 4 (63991) Diagnoses Bilateral carpal tunnel syndrome G56.03
[2025-04-08 11:49] VITALS: BMI 35.4
--- OUTSIDE RECORDS SUMMARY | 2025-04-08 15:32 | XMS_ITS | Clinical Summary ---
Author Organization [address] [facility] Address [address] [place] [address] Phone Care Team Providers Care Roustabout Hand Name Role Phone Berenice Bhatia DO Primary Care Provider [phone] Social History Tobacco Use Types Packs/Day Years [...] topic Insurance MEDICAID - [place] Care Teams Roustabout Hand Relationship Specialty Start Date End Date Berenice Bhatia DO [address] [place] [address] PCP - General Family Medicine 03/26/24
--- OUTSIDE RECORDS SUMMARY | 2025-04-08 15:32 | XMS_ITS | Encounter Summary ---
Author Organization [employer] Address [address] [facility] 7[address] [place] [address] Care Team Providers Care Senior Project Leader/Team Lead Name Role Phone [facility] Primary Care Provider [phone] Berenice Bhatia DO Primary Care Provider [phone] Reason for Visit * Reason Onset Date Comments Referral 05/19/2022 Encounter Details Date Type Department Care Team ([facility] st Contact Info) Description 05/19/2022 Telephone [facility] MEDICINE [address] [place], [place] [phone] [facility] [address] [place], [place] [phone] Referral Social History Tobacco Use Types Packs/Day [...] Call placed to pt with help of horticulture supervisor Berenice. No answer and VM left that we were calling forsome information about his requested referral. Call back requested and referral sent to PCP * Telephone Encounter - Claudio Valdes - 05/19/2022 1:44 PM EST Tc from pt requesting a [facility] Please contact pt at [phone] documented in this encounter Plan of Treatment Not on file documented as of this encounter Visit Diagnoses Not on filedocumented in this encounter Care Teams Senior Project Leader/Team Lead Relationship Specialty Start Date End Date Nimco Cervantes FNP [address] [place] [address] PCP - General Family Medicine 12/20/21 01/30/23 Berenice Bhatia DO [address] [place] [address] PCP - General Family Medicine 01/31/23 documented as of this encounter
--- OUTSIDE RECORDS SUMMARY | 2025-04-08 15:32 | XMS_ITS | Encounter Summary ---
Author Organization [employer] Address [address] [facility] 7[address] [place] [address] Care Team Providers Care Floriculture Teacher Name Role Phone Nimco Cervantes [facility] Primary Care Provider [phone] Berenice Bhatia DO Primary Care Provider [phone] Encounter Details Date Type Department Care Team (Late st Contact Info) Description 05/19/2022 Orders Only [facility] MEDICINE [address] [place] [address] Louann Doty RN Social History Tobacco Use [...] on filedocumented in this encounter Care Teams Floriculture Teacher Relationship Specialty Start Date End Date Nimco Cervantes [employer] [address] [place] [address] PCP - General Family Medicine 12/20/21 01/30/23 Berenice Bhatia DO [address] [place] [id number] PCP - General Family Medicine 01/31/23 documented as of this encounter
--- OUTSIDE RECORDS SUMMARY | 2025-04-08 15:32 | XMS_ITS | Clinical Summary ---
Author Organization [employer] Address [address] [facility] [address] [place] [address] Care Team Providers Care Make Up Arranger Name Role Phone Berenice Bhatia Primary Care Provider Allergies No known active allergies Medications baclofen (Lioresal) 10 MG tablet Take 1 tablet (10 mg) by mouth if needed in the morning, at noon, and at bedtime for muscle spasms. 60 tablet 2 3 Active Diclofenac Sodium 1 % gel Apply 2 g topically if needed in the morning, at noon, in the evening, and at bedtime (pain). 150 g 2 3 Active Blood Pressure kit 1 each 1 (one) time per week. 1 kit 4 Active atorvastatin (Lipitor) 20 MG tablet Take 1 tablet (20 mg) by mouth Once per day. 90 tablet 3 5 09/19/19 26 Active amLODIPine-vals amanda (Exforge) 5-160 MG tablet Take 1 tablet by mouth Once per day. 90 tablet 3 5 02/25/20 26 Active Active Problems Problem Noted Date Diagnosed Date Family history of colon cancer 02/24/2025 Chronic pain of both knees 09/07/2023 Bilateral carpal tunnel syndrome 09/07/2023 Chronic low back pain 01/31/2023 BMI 35.0-35.9,adult 01/31/2023 Obstructive sleep apnea 05/19/2022 Vitamin D deficiency 10/27/2021 Hyperlipidemia 08/17/2021 Essential hypertension 10/06/2020 Resolved Problems Problem Noted Date Diagnosed Date Resolved Date Bilateral hand pain 09/07/2023 02/25/20 25 Low back pain 06/30/2020 01/31/2023 Encounters Date Type Department Care Team Description 03/13/2025 Orders Only [facility] [place] [address] Berenice Bhatia DO 03/10/2025 Telephone [facility] [place] [address] Berenice Bhatia DO Results 02/24/2025 10:45 AM EST Office Visit [facility] [place] [address] Berenice Bhatia DO Essential hypertension (Primary Dx); Other hyperlipidemia; Bilateral carpal tunnel syndrome; Chronic pain of both knees; Heel pain, bilateral; Obstructive sleep apnea; Healthcare maintenance; Dietary counseling; Exercise counseling; Nocturia; Encounter for immunization 02/24/2025 Travel 02/23/2025 Telephone [facility] [place] [address] Berenice Bhatia DO Chart Prep 02/19/2025 Telephone [facility] [place] [address] Berenice Bhatia DO Recall Appointment 02/19/2025 Travel [...] Procedure Name Priority Date/Time Associated Diagnosis Comments CYTOPATH-CELL ENHANCED Routine 03/13/2025 8:55 AM EST URINALYSIS, COMPLETE (INCLUDES MACRO AND MICRO) Routine 03/06/2025 10:03 AM EST Nocturia PSA, [...] Recently Relevant to Health Maintenance Results * Cytopath-cell enhanced (03/13/2025 8:55 AM EST) 03/13/2025 8:55 AM EST 03/16/2025 7:11 AM EST [facility] - 03/18/2025 10:06 AM EST ----- ------- Name: Chuck Taylor Age/Sex: 59/M : 1965 Unit#: [id number] Attend Dr: Berenice Bhatia DO Re03/12/25 Status: DEP REF Location: [facility] Disch: ----- ------- SPEC : [id number] RECD: 03/16/25 STATUS: BALBINA VENCES NUM: [id number] YOLANDA: 03/13/[address] [facility] [address]: Berenice Bhatia DO ENTERED: 03/16/25 SP TYPE: Cytology OTHR DR: ORDERED: Cyto-enhanced Diagnosis Urine: Negative for high-grade urothelial carcinoma. Comment: Exam of a monolayer preparation slide shows scattered benign urothelial cells with degenerative changes, occasional benign squamous cells, cellular debris, many red blood cells, and scattered inflammatory cells. Clinical History Nocturia Material Received Urine Gross Description Received is 75 cc of dark yellow fluid from which a ThinPrep slide is prepared. ----- ------- Signed (signature on file) Melissa La MD 03/18/25 1006 ----- ------- END OF REPORT us Berenice Bhatia DO LAB CYTOLOGY ORDERABLES [place]ona jersey Result [facility] [address] [place] [phone] * PSA, Screen (03/06/2025 10:03 AM EST) PSA, Total 1.31 <0.05 - 4.0 ng/mL [facility] Comment:PSA methodology: Peggy Shirley i ChemiluminescentMicroparticle Immunoassay (CMIA) Blood Venous blood specimen / Unknown 03/06/2025 10:03 AM EST 03/06/2025 12:10 PM EST Berenice Bhatia DO LAB BLOOD ORDERABLES Final R esult Performing Organization Address City/[facility]/ZIP Co de Phone Number [facility] [address] [place] [phone] * Vitamin D, 25-Hydroxy, Total, Immunoassay (03/06/2025 10:03 AM EST) Vitamin D 25-OH Total 31.8 >30 ng/mL [facility] Comment: Health Based Reference Values*< 20 ng/mL Eatgihwug13-19 ng/mL Insufficient> 30 ng/mL Sufficient*Rosanne STEIN. N [...] ORDERABLES Final R esult Performing Organization Address [facility]/ZIP Co de Phone Number [facility] [address] [place] [phone] * Albumin, Random Urine W/Creatinine (03/06/2025 10:03 AM EST) Creatinine, Urine 155.23 mg/dL [facility] Microalbumin Urine <5.0 mg/L [facility] Microalbum Creatinine Ratio Ur TNP <30 ug/mg cr [facility] Comment:Unable to calculate albumin/creatinine ratio due to lowmicroalbumin or creatinine result. Urine (Urine, Random) 03/06/2025 10:03 AM EST 03/06/2025 11:35 AM EST Berenice Bhatia DO LAB URINE ORDERABLES Final R [facility] Performing Organization Address [facility]/ZIP Co de Phone Number [facility] [address] [place] [phone] * Hepatitis C Antibody with Reflex to HCV, RNA, Quantitative, Real-Time PCR (03/06/2025 10:03 AM EST) Hepatitis C Antibody Nonreactive Nonreactive [facility] Comment:Antibodies to HCV no t detected; does not exclude early acuteHCV infection. Blood Venous blood specimen / Unknown 03/06/2025 10:03 AM EST 03/06/2025 12:10 PM EST Berenice hBatia DO LAB BLOOD ORDERABLES Final R esult [facility] [address] [place] [phone] * Hepatitis A Antibody, Total (03/06/2025 10:03 AM EST) Hepatitis A Antibody IgG REACTIVE Nonreactive [facility] Comment:The presence of IgG anti-HAV implies past HAV infection(recent or distant) or vaccination against HAV. Blood Venous blood specimen / Unknown 03/06/2025 10:03 AM EST 03/06/2025 12:10 PM EST Berenice Castañedanarcisosabina DO LAB BLOOD ORDERABLES Final R esult Performing Organization Address [facility]/ZIP Co de Phone Number [facility] [address] [place] [phone] * Hepatitis B surface antigen, EIA (03/06/2025 10:03 AM EST) Hepatitis B Surface Ag Negative Negative [facility] Blood Venous blood specimen / Unknown 03/06/2025 10:03 AM EST 03/06/2025 12:10 PM EST Berenice Bhatia DO LAB BLOOD ORDERABLES Final R esult Performing Organization Address [facility] Co de Phone Number [facility] [address] [place] [phone] * Hepatitis B Core Antibody, Total (03/06/2025 10:03 AM EST) Hepatitis B Core Antibody Nonreactive Nonreactive [facility] Blood Venous blood specimen / Unknown 03/06/2025 10:03 AM EST 03/06/2025 12:10 PM EST Berenice Bhatia DO LAB BLOOD ORDERABLES Final R esult Performing Organization Address [facility] Co de Phone Number [facility] [address] [place] [phone] * RPR (Monitor) with Reflex to??Titer (03/06/2025 10:03 AM EST) RPR (Monitor) w/Refl Titer NON-REACTI VE NON-REACT DEBRA [facility] Comment:THIS TEST WAS PERFOR MED AT:[facility] [place] [phone] ARRINGTON MD Rapid Plasma Reagin Ab Titer TNP [facility] Blood Venous blood specimen / Unknown 03/06/2025 10:03 AM EST 03/06/2025 12:10 PM EST Berenice Castañedanarcisosabina DO LAB BLOOD ORDERABLES Final R esult Performing Organization Address City/[facility] Co de Phone Number [facility] [address] [place] [phone] * HIV-1/2 Antigen and Antibodies, Fourth Generation, with Reflexes (03/06/2025 10:03 AM EST) [facility] HIV AB/AG Nonreactive Nonreactive [facility] Comment:HIV-1 p24 Ag and/or HIV-1/HIV-2 Ab not detected.A test result that is nonreactive does not exclude thepossibility of exposure to or infection with HIV-1 and/orHIV-2. Nonreactive results in this assay for individualswith prior exposure to HIV-1 and/or HIV-2 may be due toantigen and antibody levels that are below the limit ofdetection of this assay.[employer] HIV Ag/Ab Combo assay result andsupplemental assay [...] City/[facility]/ZIP Co de Phone Number [facility] [address] [place] [phone] * Hepatitis B Surface Antibody, Qualitative (03/06/2025 10:03 AM EST) [facility] ~Hepatitis B Surface Antibody NONREACTIVE Nonreactive [facility] Comment:Nonreactive: < 8.00 mIU/mL Blood Venous blood specimen / Unknown 03/06/2025 10:03 AM EST 03/06/2025 12:10 PM EST Berenice Bhatia DO LAB BLOOD ORDERABLES Final R esult Performing Organization Address [facility] de Phone Number [facility] [address] [place] [phone] * (ABNORMAL) Urinalysis Complete (03/06/2025 10:03 AM EST) Color Urine Yellow [facility] Appearance Urine Clear [facility] PH 6.5 5.0 - 9.0 [facility] Glucose Urine UA Negative Negative mg/dL [facility] Urine Blood Small (1+)(A) Negative [facility] Specific [place]clean - Urine 1.020 1.005 - 1.025 [facility] Urine Protein Negative Neg-Trace mg/dL [facility] Urine Ketones Negative Negative mg/dL [facility] Nitrite Urine Negative Negative [facility] Leukocyte Esterase Urine Negative Negative [facility] RBC Urine 11-20(A) 0 - 2 /HPF [facility] Urine WBC 0-5 0 - 5 /HPF [facility] Urine Squamous Epithelial Cell 0-2 0 - 2 /HPF [facility] Urine Bacteria None Seen None Seen [facility] Hyaline Casts, Urine 0-2 0 - 2 /LPF [facility] Urine (Urine, Random) 03/06/2025 10:03 AM EST 03/06/2025 11:35 AM EST Berenice Bhatia DO LAB URINE ORDERABLES Final R esult Performing Organization Address [facility]/ZIP Co de Phone Number [facility] [address] [place] [phone] * CBC (03/06/2025 10:03 AM EST) White Blood Count 5.2 4.8 - 10.8 X10*3/uL [facility] Red Blood Count 4.88 4.60 - 5.80 X10*6/uL [facility] Hemoglobin 14.6 14.0 - 18.0 g/dl [facility] Hematocrit 45.0 42.0 - 52.0 % [facility] Mean Corpuscular Volume 92.2 80.0 - 98.0 fL [facility] Mean Corpuscular Hemoglobin 29.9 27.0 - 33.0 pg [facility] Mean Corpuscular HGB Conc 32.4 31.0 - 36.0 g/dl [facility] Red Cell Distribution Width 13.0 11.0 - 16.0 % [facility] Platelet Count 252 160 - 400 X10*3/uL [facility] Mean Platelet Volume 11.8 9.4 - 12.4 fL [facility] NRBC Pct Auto 0.0 0.0 - 0.2 /100WBC [facility] NRBC Abs Auto 0.000 0.0 - 0.012 X10*3/uL [facility] Blood Venous blood specimen / Unknown 03/06/2025 10:03 AM EST 03/06/2025 12:10 PM EST us Berenice Bhatia DO LAB BLOOD ORDERABLES Final R esult Performing Organization Address City/[facility]/ZIP Co de Phone Number [facility] [address] [place] [phone] * Culture, Urine, Routine (03/06/2025 10:03 AM EST) Urine Urine specimen obtained by clean catch procedure / Unknown 03/06/2025 10:03 AM EST 03/06/2025 11:35 AM EST Comment:UACC Narrative [facility] - 03/07/2025 12:58 PM EST Urine Culture No growth. Specimen Source: Urine clean catch Berenice Bhatia DO LAB MICROBIOLOGY - GENERAL O RDERABLES Final Result Performing Organization Address City/[facility]/ZIP Co de Phone Number [facility] [address] [place] [phone] * TSH (03/06/2025 10:03 AM EST) Thyroid Stimulating Hormone 1.16 0.32 - 4.0 uIU/mL [facility] Comment:TSH 3rd Generation ( [facility]) Blood Venous blood specimen / Unknown 03/06/2025 10:03 AM EST 03/06/2025 12:10 PM EST Berenice Castañedanarcisosabina DO LAB BLOOD ORDERABLES Final R esult Performing Organization Address City/[facility]/ZIP Co de Phone Number [facility] [address] [place] [phone] * T4, Free (03/06/2025 10:03 AM EST) Free T4 (Free Thyroxine) 0.92 0.71 - 1.85 ng/dL [facility] Blood Venous blood specimen / Unknown 03/06/2025 10:03 AM EST 03/06/2025 12:10 PM EST Berenice Jannette DO LAB BLOOD ORDERABLES Final R esult Performing Organization Address City/[facility]/ZIP Co de Phone Number [facility] [address] [place] [phone] * Hemoglobin A1c (03/06/2025 10:03 AM EST) Hemoglobin A1c 5.6 <6.0 % [facility] Comment:Hemoglobin A1C Refer ence Range Adults: 4.8 - 6.0 % Non diabetic: < 6.0 % Goal: < 7.0 %Additional Action Suggested: > 8.0 %Note: Hemoglobin A1c results are invalid for patients with abnormal amounts of HbF. Blood transfusions may impact the HbA1c concentration in the patient sample. Estimated Average Glucose 114 mg/dL [facility] Comment:eAG = Estimated ave rage glucose which is %A1C expressed asaverage glucose, using the formula of the R9T-KgnydseDacfhos Glucose study (ADAG), Diabetes Care, Vol.31,#8,2007 Blood Venous blood specimen / Unknown 03/06/2025 10:03 AM EST 03/06/2025 12:10 PM EST Berenice Bhatia LAB BLOOD ORDERABLES Final R esult Performing Organization Address City/[facility] Co de Phone Number [facility] [address] [place] [phone] * Hepatic Function Panel (03/06/2025 10:03 AM EST) Bilirubin, Total 0.5 0.0 - 1.0 mg/dL [facility] Bilirubin, Direct 0.1 0.0 - 0.5 mg/dL [facility] Aspartate Amino Transferase 24 5 - 37 U/L [facility] Alanine Aminotransferase 22 0 - 40 U/L [facility] Total Protein 7.5 6.5 - 8.0 g/dL [facility] Albumin Level 4.3 3.5 - 5.0 g/dL [facility] Alkaline Phosphatase 68 39 - 117 U/L [facility] Blood Venous blood specimen / Unknown 03/06/2025 10:03 AM EST 03/06/2025 12:10 PM EST Berenice Castañedamansi LAB BLOOD ORDERABLES Final R esult Performing Organization Address City/[facility]/ZIP Co de Phone Number [facility] [address] [place] [phone] * (ABNORMAL) Lipid Panel, Standard (03/06/2025 10:03 AM EST) Triglycerides 214(H) <150 mg/dL [facility] Comment:Desirable Triglyceri de: less than 150 mg/dLBorderline High Triglyceride 150-199 mg/dLHigh Triglyceride: 200-499 mg/dLVery High Triglyceride: greater than or equal to 5OO mg/dL Cholesterol 194 <200 mg/dL [facility] Comment:Desirable Cholestero l: less than 200 mg/dLBorderline High Cholesterol: 200-239 mg/dLHigh Cholesterol: greater than 239 mg/dL LDL Cholesterol Calculated 107(H) <100 mg/dL [facility] Comment:Desirable LDL: less than 100 mg/dLNear Optimal/Above Optimal LDL: 110- 129 mg/dLBorderline High LDL: 130-159 mg/dLHigh LDL: 160-189 mg/dLVery High LDL: greater than or equal to 190 mg/dL HDL Cholesterol 45 >40 mg/dL [facility] Comment:Desirable HDL: great er than 40 mg/dL Note: This HDL assay may give artificially low results in patients with liver disease. Blood Venous blood specimen / Unknown 03/06/2025 10:03 AM EST 03/06/2025 12:10 PM EST us Berenice Bhatia DO LAB BLOOD ORDERABLES Final R esult [facility] [address] [place] [phone] * (ABNORMAL) Basic Metabolic Panel (03/06/2025 10:03 AM EST) Sodium 143 135 - 145 mmol/L [facility] Potassium 4.2 3.3 - 5.1 mmol/L [facility] Chloride 106 96 - 108 mmol/L [facility] Carbon Dioxide 31(H) 22 - 29 mmol/L [facility] Anion Gap 10(L) 12 - 20 [facility] Urea Nitrogen (BUN) 15 9 - 16 mg/dL [facility] Creatinine, Serum 0.98 0.5 - 1.4 mg/dL [facility] Estimated Glomerular Filt Rate >60 [facility] Comment:Chronic Kidney Disea se: Estimated GFR < 60 mL/min/1.50m4Huwrnk Kidney Disease: Estimated GFR < 15 mL/min/1.73m2 Glucose 93 60 - 115 mg/dL [facility] Calcium 9.3 8.4 - 10.2 mg/dL [facility] Blood Venous blood specimen / Unknown 03/06/2025 10:03 AM EST 03/06/2025 12:10 PM EST us Berenice Bhatia DO LAB BLOOD ORDERABLES Final R esult [facility] [address] [place] [phone] * Hm Colonoscopy (01/09/2024) Colonoscopy Normal Normal Narrative Francy Martinez - 01/09/2024 See external hospital admission note from 01/09/2024 us Historical Provider MD HEALTH MAINTENANCE Final Result from Last 3 Months or Most Recently Relevant to Health Maintenance Insurance [id number] HSN FULL Care Teams Make Up Arranger Relationship Specialty Start Date End Date Berenice Bhatia DO [address] [place] [address] PCP - General Family Medicine 01/31/23
== END 2025-04-08 13:59 | disposition home or self-care (01) ==
LOC: HO.HOS 11:40
PROVIDERS: PCP Family Medicine
DX: G56.03 Carpal tunnel syndrome, bilateral upper limbs (principal)
CPT/HCPCS: 99214

== ENCOUNTER → 2025-04-08 11:40 | Outpatient (BNVA) | payer MEDICAID, SELFPAY | PROVIDERS: PCP Family Medicine | DX: G56.03 Carpal tunnel syndrome, bilateral upper limbs (principal) | CPT/HCPCS: 99212 ==